=== PATIENT | male | born 1960 | race African-American/Black ===

== ENCOUNTER 2017-11-19 01:22 | Inpatient (IN) ==
[2017-11-19] MEDS ORDERED: Ondansetron 4 MG/2 ML VIAL IVP ONE (01:28)
--- NOTE | 2017-11-19 01:35 | Emergency Department Note ---
Disposition Clinical Impression: Congestive heart failure Qualifiers: Heart failure type: unspecified Heart failure chronicity: acute Qualified Code( s): I50.9 - Heart failure, unspecified Disposition: Still a Patient Condition: Fair [facility]errals: [facility]Primary Care Provider[facility] - SOB HPI - General Stated Complaint: Shortness of Breath Nursing Notes Reviewed: Yes Vital Signs Reviewed: Yes - History of Present Illness Mr. Ball, a 57-year-old male, presents from home by EMS for evaluation of dyspnea. Onset progressive since yesterday morning. He is now having difficulty speaking and prefers an upright posture to laying down or reclining. Patient states that he had quit smoking however he missed it so he started back up several days ago. It was after this that his symptoms began. PMH: Stage V kidney disease on dialysis Sunday, Sunday, Sunday (he did not miss Sunday dialysis). Anemia of chronic disease. History of peptic ulcer disease, COPD, hypertension, endocarditis, pericarditis, cardiac Benign, chronic pain, history of sepsis. Production Support Developer: Dr. Laura ONEAL limited secondary to patient's conversational dyspnea: Positive: As above Negative: Fever, chills, chest pains, palpitations, diaphoresis - Related Data Home Medications Medication Instructions Recorded Confirmed Acetaminophen [Tylenol] 1,000 mg PO Q6HR PRN 05/10/16 05/10/16 Previous Rx's Medication Instructions Recorded Darbepoetin [Aranesp] 60 mcg SQ QWEEK syringe 04/09/16 OxyCODONE Immed Rel [Roxicodone 5 10 mg PO Q6HR PRN #30 tablet 05/12/16 MG] levoFLOXacin [Levaquin] 500 mg PO Q48H #5 tablet 05/12/16 Oxycodone HCl 5 mg PO Q6HR PRN #7 capsule 08/06/16 Allergies Allergy/AdvReac Type Severity Reaction Status Date / Time milk Allergy Severe Swelling Verified 12/06/15 20:08 of Lip/Tongue/Throat Review of Systems: As Per HPI Limitations: ROS unobtainable due to patients medical condition Past Medical History - Past Medical History Medical history: Reports: CHF, COPD, dialysis, GI bleed, hypertension, renal disease, other Surgical history: Reports: other (skin grafts left leg, amputation of left 4th distal phalanx, left foot surgery, right colectomy, multiple thoracenteses, Pleurx catheter, right forearm AV fistula) Psychiatric history: Reports: anxiety, depression - Social History Smoking Status: Current every day smoker Smokeless Tobacco Status: No Alcohol use: Reports: none Drug use: Reports: none Physical Exam Vital Signs Reviewed General: Patient is alert, oriented, and in acute respiratory distress- accessory muscle use, suprasternal retractions, to her conversational dyspnea, unable to sit reclined preferring an upright posture. Head: atraumatic, normocephalic Eye: normal appearance, no scleral icterus, no conjunctival injection ENT: mucous membranes moist, normal external ear exam Neck: normal inspection, trachea midline, full ROM Chest: normal inspection, symmetric chest rise Respiratory: Poor respiratory effort. Prolonged expiratory phase. Bilateral breath sounds are diminished with scant bibasilar crackles. No wheeze or rhonchi. Cardiovascular: Tachycardic rate and regular rhythm. No clicks, rubs, gallops, or murmors. Normal heart sounds. Abdomen: Point. Bowel sounds present normoactive x-4 quadrants. Abdomen is soft, nondistended, and nontender. No guarding or rebound. Musculoskeletal: Spontaneously moving all extremities. Skin: warm, dry, intact. Fistula and right forearm. Neuro: Alert and oriented x4. Sensation light touch intact. Psych: Patient's affect is appropriate for situation. Course Course Narrative: EKG dated 11/18/17 at 01:33 interpreted as sinus tachycardia with a rate of 119. Intervals. Borderline left axis. LVH. Peak P waves consistent with pulmonary disease. Compared to previous dated 10/11/2016 showing no acute ischemic changes or comparison. No echocardiogram records found. Clinical concern for pulmonary edema vs pneumonia. Laboratory workup shows substantially elevated BNP; far above his baseline. Troponin is less than 0.03. Patient symptomatically feels much better on BiPAP she is tolerating well. He has some mild chronic lower extremity pain; will provide analgesia. I discussed the patient with the admitting hospitalist, Dr. Flanagan, who agrees to accept the patient. Vital Signs Temperature 97.5 F L 11/19/17 01:33 Pulse Rate 119 11/19/17 01:33 Respiratory Rate 16 11/19/17 01:33 Blood Pressure 186/125 11/19/17 01:33 O2 Sat by Pulse Oximetry 97 11/19/17 01:33 Temperature 97.5 F L 11/19/17 01:33 Pulse Rate 107 11/19/17 01:51 Respiratory Rate 21 11/19/17 02:00 Blood Pressure 198/111 11/19/17 02:00 O2 Sat by Pulse Oximetry 100 11/19/17 02:00 Oxygen Delivery Oxygen Delivery Nasal Cannula Shortness of Breath/Dyspnea - Lab Data Result diagrams: 11/19/17 01:35 11/19/17 01:35 Lab Results 11/19/17 11/19/17 11/19/17 Range/Units 01:35 01:35 01:35 WBC 8.5 (4.3-11.1) K/mcL RBC 4.12 L (4.19-5.50) M/mcL Hgb 11.4 L (12.9-16.9) g/dL Hct 36.0 L (37.5-50.1) % MCV 87.4 (83.0-100.0) fL MCH 27.7 L (28.0-33.3) pg MCHC 31.7 (31.6-35.5) g/dL RDW 13.4 (11.5-14.5) % Plt Count 264 (140-400) K/mcL MPV 9.4 (9.4-12.4) fL Immature Gran % 0.2 (0-4) % Seg Neutrophils % 76.4 % Lymphocytes % 13.3 % Monocytes % 6.3 % Eosinophils % 3.0 % Basophils % 0.8 % Neutrophils # 6.5 (1.6-8.9) K/mcL Lymphocytes # 1.1 (0.6-4.6) K/mcL Monocytes # 0.5 (0.0-1.3) K/mcL Eosinophils # 0.3 (0.0-0.6) K/mcL Basophils # 0.1 (0.0-0.2) K/mcL VBG pH (7.32-7.42) pH Units VBG pCO2 (41-51) mmHg VBG pO2 (25-50) mmHg VBG HCO3 (21-27) mEq/L Sodium 136 (136-145) mEq/L Potassium 5.5 H (3.5-5.1) mEq/L Chloride 98 (98-107) mEq/L Carbon Dioxide 22 L (23-29) mEq/L BUN 54 H (6-20) mg/dL Creatinine 10.58 H (0.70-1.30) mg/dL Est GFR ( Amer) 6 L (> 60) Est GFR (Non-Af Amer) 5 L (> 60) BUN/Creatinine Ratio 5 L (6-26) Glucose 100 (70-105) mg/dL Calculated Osmolality 297 (280-300) Lactic Acid 2.1 (0.5-2.2) mmol/L Calcium 9.1 (8.6-10.3) mg/dL Troponin I 0.03 (< 0.04) ng/mL B-Natriuretic Peptide (Less than 100) pg/mL 11/19/17 11/19/17 Range/Units 01:35 01:48 WBC (4.3-11.1) K/mcL RBC (4.19-5.50) M/mcL Hgb (12.9-16.9) g/dL Hct (37.5-50.1) % MCV (83.0-100.0) fL MCH (28.0-33.3) pg MCHC (31.6-35.5) g/dL RDW (11.5-14.5) % Plt Count (140-400) K/mcL MPV (9.4-12.4) fL Immature Gran % (0-4) % Seg Neutrophils % % Lymphocytes % % Monocytes % % Eosinophils % % Basophils % % Neutrophils # (1.6-8.9) K/mcL Lymphocytes # (0.6-4.6) K/mcL Monocytes # (0.0-1.3) K/mcL Eosinophils # (0.0-0.6) K/mcL Basophils # (0.0-0.2) K/mcL VBG pH 7.23 L (7.32-7.42) pH Units VBG pCO2 60 H (41-51) mmHg VBG pO2 35 (25-50) mmHg VBG HCO3 25 (21-27) mEq/L Sodium (136-145) mEq/L Potassium (3.5-5.1) mEq/L Chloride (98-107) mEq/L Carbon Dioxide (23-29) mEq/L BUN (6-20) mg/dL Creatinine (0.70-1.30) mg/dL Est GFR ( Amer) (> 60) Est GFR (Non-Af Amer) (> 60) BUN/Creatinine Ratio (6-26) Glucose (70-105) mg/dL Calculated Osmolality (280-300) Lactic Acid (0.5-2.2) mmol/L Calcium (8.6-10.3) mg/dL Troponin I (< 0.04) ng/mL B-Natriuretic Peptide 3217 H (Less than 100) pg/mL
--- NOTE | 2017-11-19 01:49 | Emergency Department Note ---
Disposition Clinical Impression: Congestive heart failure Qualifiers: Heart failure type: unspecified Heart failure chronicity: chronic Qualified Code(s): I50.9 - Heart failure, unspecified Disposition: Still a Patient [facility]errals: [facility] [Primary Care Provider] - General Adult HPI - General Chief complaint: ED Shortness of Breath/Dyspnea Stated complaint: Shortness of Breath Source: patient Limitations: no limitations - History of Present Illness Pain Scale: 0 - Related Data Home Medications Medication Instructions Recorded Confirmed Acetaminophen [Tylenol] 1,000 mg PO Q6HR PRN 05/10/16 05/10/16 Previous Rx's Medication Instructions Recorded Darbepoetin [Aranesp] 60 mcg SQ QWEEK syringe 04/09/16 OxyCODONE Immed Rel [Roxicodone 5 10 mg PO Q6HR PRN #30 tablet 05/12/16 MG] levoFLOXacin [Levaquin] 500 mg PO Q48H #5 tablet 05/12/16 Oxycodone HCl 5 mg PO Q6HR PRN #7 capsule 08/06/16 Allergies Allergy/AdvReac Type Severity Reaction Status Date / Time milk Allergy Severe Swelling Verified 12/06/15 20:08 of Lip/Tongue/Throat Past Medical History - Past Medical History Medical history: Reports: CHF, COPD, dialysis, GI bleed, hypertension, renal disease, other Surgical history: Reports: other (skin grafts left leg, amputation of left 4th distal phalanx, left foot surgery, right colectomy, multiple thoracenteses, Pleurx catheter, right forearm AV fistula) Psychiatric history: Reports: anxiety, depression - Social History Smoking Status: Current every day smoker Smokeless Tobacco Status: No Alcohol use: Reports: none Drug use: Reports: none Physical Exam - General Limitations: no limitations General appearance: alert Course - Reevaluation(s) Reevaluation #1: Attestation note I examined this patient and my medical decision-making was reviewed with the emergency medicine resident. I agree with the documented findings, disposition and treatment plan as described except to the extent set forth below. Patient seen with emergency medicine resident Dr. Amado Zee, Please see a copy of his note for details of the H&P, ED evaluation, management and disposition. I have independently evaluated the patient and confirmed appropriate portions of the history and physical exam. Briefly: 49-year-old dialysis dependent end-stage renal disease male via EMS for increased shortness of breath. And dyspnea on exertion. Patient gets dialyzed 3 times a week he has not missed any Histex appointment is today on Sunday. No fever chills or sputum. Patient has bibasilar crackles. Patient get up PA lateral chest x-ray and screening labs. Patient placed on supplental oxygen. We will consider BiPAP and admission. Disposition pending Time: 01:46 Vital Signs Temperature 97.5 F L 11/19/17 01:33 Pulse Rate 119 11/19/17 01:33 Respiratory Rate 16 11/19/17 01:33 Blood Pressure 186/125 11/19/17 01:33 O2 Sat by Pulse Oximetry 97 11/19/17 01:33 Temperature 97.5 F L 11/19/17 01:33 Pulse Rate 119 11/19/17 01:33 Respiratory Rate 16 11/19/17 01:33 Blood Pressure 186/125 11/19/17 01:33 O2 Sat by Pulse Oximetry 95 11/19/17 01:42 Oxygen Delivery Oxygen Delivery Nasal Cannula
[2017-11-19 01:52] LABS: VBG HCO3 25 mEq/L (21-27); VBG PCO2 60 mmHg (41-51); VBG PH 7.23 pH Units (7.32-7.42); VBG PO2 35 mmHg (25-50)
[2017-11-19 01:53] LABS: Basophils # 0.1 K/mcL (0.0-0.2); Basophils % 0.8 %; Eosinophils # 0.3 K/mcL (0.0-0.6); Hemoglobin 11.4 g/dL (12.9-16.9); Immature Granulocytes % 0.2 % (0-4); Lymphocytes # 1.1 K/mcL (0.6-4.6); Lymphocytes % 13.3 %; Mean Corpuscular HGB Conc 31.7 g/dL (31.6-35.5); Mean Corpuscular Hemoglobin 27.7 pg (28.0-33.3); Mean Corpuscular Volume 87.4 fL (83.0-100.0); Mean Platelet Volume 9.4 fL (9.4-12.4); Monocytes # 0.5 K/mcL (0.0-1.3); Monocytes % 6.3 %; Neutrophils # 6.5 K/mcL (1.6-8.9); Platelet Count 264 K/mcL (140-400); Red Blood Count 4.12 M/mcL (4.19-5.50); Red Cell Distribution Width 13.4 % (11.5-14.5); Segmented Neutrophils % 76.4 %
[2017-11-19 02:12] LABS: Troponin I 0.03 ng/mL (< 0.04)
[2017-11-19 02:26] LABS: Calcium 9.1 mg/dL (8.6-10.3); Potassium 5.5 mEq/L (3.5-5.1)
[2017-11-19] MEDS ORDERED: *HR* Nalbuphine 10 MG/ML AMPUL IVP STA (02:33)
[2017-11-19] MEDS ORDERED: Furosemide 40 MG/4 ML VIAL IVP ONE ×2 (02:57→03:37)
[2017-11-19] MEDS ORDERED: Naloxone 0.4 MG/ML INJ IVP PRN (02:57)
[2017-11-19] MEDS ORDERED: Nitroglycerin 0.4 MG TAB.SUBL SL ONE (03:00)
[2017-11-19] MEDS ORDERED: amLODIPine 5 MG TABLET PO ONE (03:00)
[2017-11-19] MEDS ORDERED: Ipratropium/Albuterol Neb 3 ML IH PRN (03:01)
--- NOTE | 2017-11-19 03:05 | Internal Med History&Physical ---
Date of Encounter: 11/19/17 Time of Encounter: 03:38 Internal Medicine - H&P: HPI Chief complaint: Shortness of breath Admitted From: Home Plans for Post Hospital Care: Home History of present illness: Mr. Ball is a 57 year old male with medical history of end-stage renal disease on hemodialysis Sunday/Sunday/Sunday, GERD, COPD, tobacco abuse, presented to the emergency room with sudden onset shortness of breath starting the day prior to presentation. Patient reports he was in his usual state of health till he developed sudden shortness of breath at rest, associated with orthopnea with inability to lay flat, no PND. He denies cough, he denies fever or chills, denies rhinorrhea, no sick contacts, no chest pain. He denies recent travels or calf tenderness. He denies nausea, vomiting, abdominal pain, change in urinary or bowel habits. He still makes urine. He denies any neurologic symptoms. On presentation to the ER, the patient was tachypneic with extremely elevated blood pressures and hypoxic requiring 2 L of oxygen by nasal cannula.. In the ER shows CBC at baseline, hypokalemia with potassium of 5.5, kidney function at baseline. BNP was greater than 3000. Troponin was negative. EKG is nonischemic. Chest x-ray shows bilateral pulmonary edema. Patient will be admitted for CHF exacerbation, fluid overload with pulmonary edema, hypertensive urgency. He has been placed on BiPAP from the emergency room. Past Med Surg Social Fam HX - Past Medical History Medical history: CHF, COPD, dialysis, GI bleed, hypertension, renal disease, other Psychiatric history: anxiety, depression - Past Surgical History Surgical History: other (skin grafts left leg, amputation of left 4th distal phalanx, left foot surgery, right colectomy, multiple thoracenteses, Pleurx catheter, right forearm AV fistula) - Social History Smoking Status: Current every day smoker Smokeless Tobacco Status: No Alcohol use: none Drug use: none Internal Medicine - H&P: Meds Darbepoetin [Aranesp] 60 mcg SQ QWEEK syringe 04/09/16 [Rx] Acetaminophen [Tylenol] 1,000 mg PO Q6HR PRN 05/10/16 [History] OxyCODONE Immed Rel [Roxicodone 5 MG] 10 mg PO Q6HR PRN #30 tablet 05/12/16 [Rx] levoFLOXacin [Levaquin] 500 mg PO Q48H #5 tablet 05/12/16 [Rx] Oxycodone HCl 5 mg PO Q6HR PRN #7 capsule 08/06/16 [Rx] 3 Allergy/AdvReac Type Severity Reaction Status Date / Time milk Allergy Severe Swelling Verified 12/06/15 20:08 of Lip/Tongue/Throat All Systems PM: A 10-system review of systems was performed and is negative for pertinent findings except as documented above in the HPI. - Constitutional Constitutional: as per HPI - EENT Eyes: as per HPI Ears: as per HPI Nose, mouth and throat: as per HPI - Cardiovascular Cardiovascular ROS IM: as per HPI - Respiratory Respiratory: as per HPI - Gastrointestinal Gastrointestinal: as per HPI - Musculoskeletal Musculoskeletal ROS IM: as per HPI - Integumentary Integumentary IM: as per HPI - Neurological Neurological ROS: as per HPI - Hematologic/Lymphatic Hematologic/Lymphatic: as per HPI - Constitutional Vitals: Temp Pulse Resp BP Pulse Ox 97.5 F L 107 21 198/111 100 11/19/17 01:33 11/19/17 01:51 11/19/17 02:00 11/19/17 02:00 11/19/17 02:00 General appearance: Present: mild distress, A&O X 3, pleasant - Head Head exam: Present: atraumatic, normocephalic - Eye Eye exam: Present: PERRL, conjuntiva pink, sclera anicteric Pupils: Present: PERRL - Neck Neck exam general surgery: Present: supple, trachea midline. Absent: lymphadenopathy - Respiratory Additional comments: Patient is tachypneic with respiratory rate of 20-24, diffuse bilateral crackles in both lung zones. He is not wheezing. He has no rhonchi. - Cardiovascular Cardiovascular exam: Present: RRR, +S1, +S2. Absent: diastolic murmur, gallop, rubs, systolic murmur - GI/Abdominal GI/Abdominal exam: Present: normal bowel sounds, soft, no peritoneal signs. Absent: distended, tenderness - Extremities Exam Extremities exam: Present: warm, radial pulses palpable and symmetrical. Absent : calf tenderness, cyanotic, pedal edema Additional comments: Left leg chronic venostasis changes. No cough tenderness. - Neurological Exam Neurological exam: Present: alert, CN II-XII intact, oriented X3, no focal deficits. Absent: pronater drift, facial droop, speech deficit - Skin Skin exam: Present: dry, intact Internal Med - H&P Results - Labs CBC & Chem 7: 11/19/17 01:35 11/19/17 01:35 - Assessment and plan (1) Hypertensive urgency Current Visit: Yes Status: Acute Assessment and plan: Blood pressure is improving with administration of Lasix, start Norvasc by mouth. Patient reports he is not a known hypertensive, blood pressure during hemodialysis on Sunday was within normal limits. Continue Norvasc for now, withhold for blood pressure SBP <140 (2) Congestive heart failure Current Visit: Yes Status: Acute Assessment and plan: Patient also subsisted history of CHF, no echocardiogram on file. Presented with shortness of breath with elevated BNP, and evidence of pulmonary edema. Lasix IV 80 mg was given, will give additional 40 mg as his blood pressure cannot tolerate. Continue Lasix IV 40 mg daily. Chest x-ray with evidence of pulmonary edema continue BiPAP.Blood gases unremarkable. Nephrology evaluation for hemodialysis routinely. Daily weights. Strict intake and output. Qualifiers: Heart failure type: unspecified Heart failure chronicity: acute on chronic Qualified Code(s): I50.9 - Heart failure, unspecified (3) DVT prophylaxis Current Visit: Yes Status: Acute Assessment and plan: Subcutaneous heparin. (4) End-stage renal disease Current Visit: Yes Status: Chronic Assessment and plan: Nephrology consulted for hemodialysis. - Time Spent With Patient Total time spent is greater than 50% in coordination of care (as documented) at patient's floor/unit and/or counseling patient:
[2017-11-19] MEDS: *HR* Heparin 5,000 UNIT/ML VIAL SQ SCH ×3 (06:17→22:16)
[2017-11-19] MEDS ORDERED: 0.9 % Sodium Chloride 250 ML IVC PRN (09:57)
--- NOTE | 2017-11-19 09:57 | Nephrology Consult Note ---
Date of Encounter: 11/19/17 Time of Encounter: 09:55 Assessment and Plan (1) End-stage renal disease Current Visit: Yes Status: Chronic Patient is end-stage renal disease related to hypertensive nephrosclerosis. He presents with acute onset shortness of breath in the setting of what appears to be pulmonary edema. He will undergo urgent dialysis this morning. (2) Benign hypertensive kidney disease with end stage renal disease Current Visit: Yes Status: Acute History of Present Illness - History of Present Illness This is a 57-year-old male with end-stage renal disease. He receives dialysis every Sunday in [place]. He has a right arm AV fistula. Patient was admitted to the hospital with acute onset of shortness of breath. Patient states he was at home smoking last night when he became acutely short of breath presented to the emergency room. Chest x-ray showed evidence of pulmonary edema. BNP was elevated as was his blood pressure. Currently the patient is on BiPAP. He says he feels somewhat better. He is going to be going for dialysis this morning. Past Med Surg Social Fam HX - Past Medical History Medical history: CHF, COPD, dialysis, GI bleed, hypertension, renal disease, other Psychiatric history: anxiety, depression - Past Surgical History Surgical History: other (skin grafts left leg, amputation of left 4th distal phalanx, left foot surgery, right colectomy, multiple thoracenteses, Pleurx catheter, right forearm AV fistula) - Social History Smoking Status: Current every day smoker Packs per day: 1 Smokeless Tobacco Status: No Alcohol use: none Drug use: none Medications and Allergies Darbepoetin [Aranesp] 60 mcg SQ QWEEK syringe 04/09/16 [Rx] Acetaminophen [Tylenol] 1,000 mg PO Q6HR PRN 05/10/16 [History] OxyCODONE Immed Rel [Roxicodone 5 MG] 10 mg PO Q6HR PRN #30 tablet 05/12/16 [Rx] levoFLOXacin [Levaquin] 500 mg PO Q48H #5 tablet 05/12/16 [Rx] Oxycodone HCl 5 mg PO Q6HR PRN #7 capsule 08/06/16 [Rx] 3 Allergy/AdvReac Type Severity Reaction Status Date / Time milk Allergy Severe Swelling Verified 12/06/15 20:08 of Lip/Tongue/Throat Review of Systems Constitutional: as per HPI Eyes: bilateral: blurred vision (patient denies), diplopia (patient denies) Nose, mouth and throat: no dizziness, no headache(s) Cardiovascular: dyspnea, dyspnea on exertion Respiratory: dyspnea, dyspnea on exertion Gastrointestinal: no abdominal pain, no change in bowel habits Musculoskeletal: no muscle weakness, no numbness Integumentary: no hirsutism, no striae Neurological: abnormal gait Psychiatric: no depression, no difficulty concentrating Endocrine: as per HPI Hematologic/Lymphatic: no easy bruising, no lymphadenopathy Exam - Vital Signs Vital signs: Initial Vital Signs Temp Pulse Resp BP Pulse Ox 97.5 F L 119 16 186/125 97 11/19/17 01:33 11/19/17 01:33 11/19/17 01:33 11/19/17 01:33 11/19/17 01:33 Vital Signs - Last 8 Hours Temp Pulse Resp BP Pulse Ox 11/19/17 09:23 92 11/19/17 09:12 96 11/19/17 09:07 97.6 F 90 20 151/97 97 11/19/17 03:45 92 11/19/17 03:28 97.1 F L 90 19 168/106 98 11/19/17 03:19 18 175/118 Intake and Output 11/18/17 11/19/17 11/19/17 23:59 07:59 15:59 Other: Weight 78.2 kg Blood Glucose* 77 87 Patient Weight 11/19/17 23:59 Weight 78.2 kg - General Appearance Exam: Patient is currently alert and oriented. He is on BiPAP. He is in no acute distress. Lungs very coarse breath sounds especially in the bases. There is some coarse rales in the bases. No wheezing or rhonchi. Heart regular rate and rhythm with a 2/6 soft ejection murmur. Abdomen shows normal bowel sounds buries masses, megaly or tenderness. There is some mild swelling of the left lower extremity which is chronic for the patient. There is no swelling of the right lower extremity. There is a functioning AV fistula in the right upper extremity. Results - Lab Results 11/19/17 01:35 11/19/17 01:35 Most recent lab results Calcium 9.1 mg/dL (8.6-10.3) 11/19/17 01:35 Consult Discharge Plan - Plan
[2017-11-19] MEDS ORDERED: Acetaminophen 325 MG TABLET PO PRN (10:36)
--- NOTE | 2017-11-19 11:16 | Event Note ---
Date of Encounter: 11/19/17 Time of Encounter: 11:14 Mr. Ball is a 57 year old male with medical history of end-stage renal disease on hemodialysis Sunday/Sunday/Sunday, GERD, COPD, tobacco abuse, presented to the emergency room with sudden onset shortness of breath starting the day prior to presentation. Patient reports he was in his usual state of health till he developed sudden shortness of breath at rest, associated with orthopnea with inability to lay flat, no PND. He denies cough, he denies fever or chills, denies rhinorrhea, no sick contacts, no chest pain. He denies recent travels or calf tenderness. He denies nausea, vomiting, abdominal pain, change in urinary or bowel habits. He still makes urine. He denies any neurologic symptoms. Patient was admitted for acute on chronic CHF exacerbation was BNP 3000 above. Patient is seen and examined this morning, he feels a better on BiPAP. Patient gets dialysis Sunday. I called to Dr. Jackson he is aware of his dialyzes, he will set up HD this afternoon
[2017-11-19] MEDS ORDERED: 0.9 % Sodium Chloride 2,000 ML ONE (12:53)
[2017-11-19 13:04] LABS: Hepatitis B Surface Antigen Nonreactive (Nonreactive)
[2017-11-20 04:14] LABS: Basophils % 0.8 %; Eosinophils # 0.2 K/mcL (0.0-0.6); Eosinophils % 2.9 %; Hematocrit 30.7 % (37.5-50.1); Hemoglobin 9.9 g/dL (12.9-16.9); Immature Granulocytes % 0.2 % (0-4); Lymphocytes # 0.4 K/mcL (0.6-4.6); Lymphocytes % 8.3 %; Mean Corpuscular HGB Conc 32.2 g/dL (31.6-35.5); Mean Corpuscular Hemoglobin 27.6 pg (28.0-33.3); Mean Corpuscular Volume 85.5 fL (83.0-100.0); Mean Platelet Volume 9.5 fL (9.4-12.4); Monocytes # 0.4 K/mcL (0.0-1.3); Monocytes % 8.3 %; Neutrophils # 4.1 K/mcL (1.6-8.9); Platelet Count 195 K/mcL (140-400); Red Blood Count 3.59 M/mcL (4.19-5.50); Red Cell Distribution Width 13.4 % (11.5-14.5); Segmented Neutrophils % 79.5 %
[2017-11-20 04:40] LABS: Calcium 8.6 mg/dL (8.6-10.3)
[2017-11-20] MEDS: *HR* Heparin 5,000 UNIT/ML VIAL SQ SCH ×3 (05:00→21:24)
[2017-11-20] MEDS ORDERED: *HR* Nalbuphine 10 MG/ML AMPUL IV ONE (05:14)
--- NOTE | 2017-11-20 08:10 | Nephrology Progress Note ---
Date of Encounter: 11/20/17 Time of Encounter: 08:09 - Assessment and Plan (1) End-stage renal disease Current Visit: Yes Status: Chronic The patient will continue to be supported with dialysis every Sunday. I am going to make some changes to his antihypertensive regimen today. (2) Benign hypertensive kidney disease with end stage renal disease Current Visit: Yes Status: Acute Subjective Interval history: The patient reports his shortness of breath is improved. His oxygen saturation is greater than 90% on room air. Blood pressure remains suboptimal. He did undergo dialysis yesterday. Objective - Vital Signs Vital signs: Vital Signs Temp Pulse Resp BP Pulse Ox 11/20/17 03:39 98.1 F 94 17 156/100 95 11/19/17 23:06 98.2 F 91 17 145/96 90 11/19/17 22:18 87 11/19/17 20:14 98.2 F 87 18 149/98 93 11/19/17 16:07 97.9 F 89 18 128/83 96 11/19/17 14:00 97.4 F L 18 133/78 11/19/17 13:35 122/80 11/19/17 13:20 130/84 11/19/17 13:15 127/83 11/19/17 12:55 96/48 11/19/17 12:50 124/80 11/19/17 12:35 128/80 11/19/17 12:20 134/83 11/19/17 12:05 126/86 11/19/17 11:50 133/77 11/19/17 11:35 141/89 11/19/17 11:20 138/84 11/19/17 11:05 154/99 11/19/17 10:50 161/104 11/19/17 10:35 97.0 F L 20 148/96 11/19/17 09:23 92 11/19/17 09:12 96 11/19/17 09:07 97.6 F 90 20 151/97 97 Intake and Output 11/19/17 11/20/17 11/20/17 23:59 07:59 15:59 Intake Total 240 / 240 Balance 240 / 240 Intake: Oral 240 / 240 Other: Meal Dinner Percent of Meal Consumed 100% Weight 77.5 kg Blood Glucose* 124 Patient Weight 11/20/17 23:59 Weight 77.5 kg - General Appearance Exam: The patient is alert and oriented. He is in no acute distress. Lungs diminished breath sounds otherwise clear. Heart regular rate and rhythm. Abdomen is benign. There is a right arm AV fistula. There is no swelling of the right lower extremity. There is chronic edema of the left lower extremity. - Lab 11/20/17 03:38 11/20/17 03:38 Most recent lab results Calcium 8.6 mg/dL (8.6-10.3) 11/20/17 03:38 Consult Discharge Plan - Plan [facility]errals: [facility] [Primary Care Provider] - 11/28/17 10:45 am (PLEASE MAKE SURE YOU GO TO YOUR APPOINTMENT, THIS IS A NECESSITIY. )
[2017-11-20] MEDS: amLODIPine 5 MG TABLET PO SCH ×2 (08:53→20:39)
[2017-11-20] MEDS: Furosemide 40 MG/4 ML VIAL IVP SCH (08:54)
[2017-11-20] MEDS ORDERED: amLODIPine 5 MG TABLET PO SCH (09:00)
--- NOTE | 2017-11-20 17:22 | Internal Med Progress Note ---
Date of Encounter: 11/20/17 Time of Encounter: 10:20 - Assessment and plan (1) Congestive heart failure Current Visit: Yes Status: Acute Assessment and plan: Patient has acute worsening of diastolic CHF. Continue dialysis and lasix. Qualifiers: Heart failure type: diastolic Heart failure chronicity: acute on chronic Qualified Code(s): I50.33 - Acute on chronic diastolic (congestive) heart failure (2) End-stage renal disease Current Visit: Yes Status: Chronic Assessment and plan: ESRD with fluid overload. s/p dialysis. Continue dialysis per schedule. renal on board (3) DVT prophylaxis Current Visit: Yes Status: Acute Assessment and plan: Subcutaneous heparin. (4) Hypertensive urgency Current Visit: Yes Status: Acute Assessment and plan: Blood pressure is improving with administration of Lasix, start Norvasc by mouth. Patient reports he is not a known hypertensive, blood pressure during hemodialysis on Sunday was within normal limits. Continue on Norvasc. Follow renal recs for adjustment for antihypertensive regimen - Time Spent With Patient Total time spent is greater than 50% in coordination of care (as documented) at patient's floor/unit and/or counseling patient: - Subjective Interval history: No acute complaints this am - Constitutional Vitals: Temp Pulse Resp BP Pulse Ox 98.4 F 95 17 143/95 98 11/20/17 17:16 11/20/17 17:16 11/20/17 17:16 11/20/17 17:16 11/20/17 17:16 General appearance: Present: mild distress, A&O X 3, pleasant - Head Head exam: Present: atraumatic, normal inspection, normocephalic - Neck Neck exam general surgery: Present: supple - Respiratory Respiratory exam: Present: CTAB - Cardiovascular Cardiovascular exam: Present: +S1 - GI/Abdominal GI/Abdominal exam: Present: normal bowel sounds, soft - Neurological Exam Neurological exam: Present: alert Internal Medicine: Result - Labs CBC & Chem 7: 11/20/17 03:38 11/20/17 03:38 Labs: Short CBC 11/20/17 Range/Units 03:38 WBC 5.2 (4.3-11.1) K/mcL Hgb 9.9 L D (12.9-16.9) g/dL Hct 30.7 L (37.5-50.1) % Plt Count 195 (140-400) K/mcL Neutrophils # 4.1 (1.6-8.9) K/mcL BMP 11/20/17 03:38 Sodium 134 L Potassium 6.0 H Chloride 96 L Carbon Dioxide 28 BUN 36 H Creatinine 7.81 H Glucose 77 Calcium 8.6 - Impressions Impressions Echocardiogram 11/19/17 03:02 Impressions: LVEF 50%. Normal LV chamber size and low normal function. Mild concentric left ventricular hypertrophy. Indeterminate diastolic function. Normal right ventricular structure and function. Mild-moderate aortic regurgitation. Mildly thickened mitral valve leaflets with evidence of mobile echodensities, some of which may be redundant chordae tendineae. Previous study from 01/2015 reviewed and findings are very similar. Clinical correlation suggested. Mild mitral regurgitation. Unable to estimate RVSP due to lack of TR jet. LVEF has improved compared to prior reports. Left Ventricular Wall Motion: Rest Echo Findings All wall segments showed normal motion. Findings: Study Quality * Technically adequate exam. ECG Findings * Normal sinus rhythm. Left Ventricle * LVEF 50%. * Normal LV chamber size and low normal function. * Mild concentric left ventricular hypertrophy. * Indeterminate diastolic function. Right Ventricle * Normal right ventricular structure and function. Left Atrium * Moderately dilated left atrium. Right Atrium * Mildly dilated right atrium. Aortic Valve * Trileaflet aortic valve. * Mild-moderate aortic regurgitation. * No aortic stenosis. Mitral Valve * Mildly thickened mitral valve leaflets with evidence of mobile echodensities, some of which may be redundant chordae tendineae. * Mild mitral regurgitation. * No mitral stenosis. Tricuspid Valve * Grossly normal tricuspid valve structure and function. * No tricuspid regurgitation. * Unable to estimate RVSP due to lack of TR jet. Pulmonic Valve * Pulmonic valve is not well visualized. * No pulmonic regurgitation. Aorta * Normally sized aortic root. Pericardium * The pericardium appears normal. IVC * Normal IVC dimensions and inspiratory collapse. Pulmonary Artery * Normal visualized portions of the main pulmonary artery. Consult Discharge Plan - Plan Referrals: LILIANA,PCP [Primary Care Provider] - 11/28/17 10:45 am (PLEASE MAKE SURE YOU GO TO YOUR APPOINTMENT, THIS IS A NECESSITIY. )
[2017-11-21] MEDS: *HR* Heparin 5,000 UNIT/ML VIAL SQ SCH ×3 (05:25→20:05)
[2017-11-21 06:30] LABS: Basophils # 0.1 K/mcL (0.0-0.2); Basophils % 0.6 %; Eosinophils # 0.1 K/mcL (0.0-0.6); Eosinophils % 1.4 %; Immature Granulocytes % 0.4 % (0-4); Lymphocytes % 5.5 %; Mean Corpuscular HGB Conc 32.5 g/dL (31.6-35.5); Mean Corpuscular Hemoglobin 27.7 pg (28.0-33.3); Mean Corpuscular Volume 85.3 fL (83.0-100.0); Mean Platelet Volume 9.5 fL (9.4-12.4); Monocytes # 0.5 K/mcL (0.0-1.3); Monocytes % 6.2 %; Platelet Count 244 K/mcL (140-400); Red Blood Count 4.22 M/mcL (4.19-5.50); Red Cell Distribution Width 13.4 % (11.5-14.5); Segmented Neutrophils % 85.9 %
[2017-11-21 06:48] LABS: Hemoglobin 11.7 g/dL (12.9-16.9); Lymphocytes # 0.5 K/mcL (0.6-4.6)
[2017-11-21 07:02] LABS: Albumin 4.3 g/dL (3.5-5.7); Albumin/Globulin Ratio 1.2 (1.1-2.2); Bilirubin,Total 0.6 mg/dL (0.3-1.0); Globulin 3.6 g/dL (2.4-3.5); Potassium 7.1 mEq/L (3.5-5.1); Total Protein 7.9 g/dL (6.4-8.9)
[2017-11-21] MEDS ORDERED: Acetaminophen 325 MG TABLET PO PRN (07:18)
[2017-11-21] MEDS ORDERED: 0.9 % Sodium Chloride 1,000 ML ONE (07:23)
[2017-11-21] MEDS ORDERED: 0.9 % Sodium Chloride 250 ML IVC PRN (08:19)
[2017-11-21] MEDS ORDERED: 0.9 % Sodium Chloride 1,000 ML PRIME SCH (08:30)
--- NOTE | 2017-11-21 10:20 | Nephrology Progress Note ---
Date of Encounter: 11/21/17 Time of Encounter: 09:20 - Assessment and Plan (1) End-stage renal disease Current Visit: Yes Status: Chronic HD today keeping MWF schedule. Orders given. Noted K 7.1 and orders for kaexylate, calcium gluc. given. Subjective Interval history: Seen on HD. States breathing easier. Objective - Vital Signs Vital signs: Vital Signs Temp Pulse Resp BP Pulse Ox 11/21/17 07:00 97.7 F 85 18 160/96 100 11/21/17 03:59 97.7 F 91 24 167/102 99 11/21/17 00:33 98.0 F 90 18 144/91 92 11/20/17 19:30 98.0 F 97 20 154/85 95 11/20/17 17:16 98.4 F 95 17 143/95 98 11/20/17 16:09 94 11/20/17 13:38 102 11/20/17 12:05 98.4 F 97 17 151/94 99 Intake and Output 11/20/17 11/21/17 11/21/17 23:59 07:59 15:59 Intake Total 0 / 0 Balance 0 / 0 Intake: Oral 0 / 0 Other: Percent of Meal Consumed 0% Weight 76.7 kg Patient Weight 11/21/17 23:59 Weight 76.7 kg - General Appearance General appearance: Present: well-developed, well-nourished, appears started age EENT: Present: mucous membranes moist Neck: Present: no JVD Respiratory: Present: clear Cardiology: Present: no edema, regular rate, regular rhythm Gastrointestinal: Present: normoactive bowel sounds, no tenderness Integumentary: Present: warm and dry Neurologic: Present: alert and oriented x3 - Lab 11/21/17 05:41 11/21/17 05:41 Most recent lab results Calcium 9.0 mg/dL (8.6-10.3) 11/21/17 05:41 Consult Discharge Plan - Plan [facility]errals: [facility] [Primary Care Provider] - 11/28/17 10:45 am (PLEASE MAKE SURE YOU GO TO YOUR APPOINTMENT, THIS IS A NECESSITIY. )
--- NOTE | 2017-11-21 11:56 | Internal Med Progress Note ---
Date of Encounter: 11/21/17 Time of Encounter: 11:55 - Assessment and plan (1) Congestive heart failure Current Visit: Yes Status: Acute Assessment and plan: Patient has acute worsening of diastolic CHF. Continue dialysis and lasix. Qualifiers: Heart failure type: diastolic Heart failure chronicity: acute on chronic Qualified Code(s): I50.33 - Acute on chronic diastolic (congestive) heart failure (2) End-stage renal disease Current Visit: Yes Status: Chronic Assessment and plan: ESRD with fluid overload. s/p dialysis. Continue dialysis per schedule. renal on board (3) DVT prophylaxis Current Visit: Yes Status: Acute Assessment and plan: Subcutaneous heparin. (4) Hypertensive urgency Current Visit: Yes Status: Acute Assessment and plan: Blood pressure is improving with administration of Lasix, start Norvasc by mouth. Patient reports he is not a known hypertensive, blood pressure during hemodialysis on Sunday was within normal limits. Continue on Norvasc. Follow renal recs for adjustment for antihypertensive regimen (5) Hyperkalemia Current Visit: No Status: Acute Assessment and plan: Patient hypekalemic up to 7.1 this am. GAve one dose of calcium gluconate and kayexalate. Plan for dialysis this am. Repeat potassium this pm - Time Spent With Patient Total time spent is greater than 50% in coordination of care (as documented) at patient's floor/unit and/or counseling patient: - Subjective Interval history: No acute complaints this am - Constitutional Vitals: Temp Pulse Resp BP Pulse Ox 97.9 F 85 17 119/71 100 11/21/17 09:10 11/21/17 07:00 11/21/17 09:10 11/21/17 11:40 11/21/17 07:00 General appearance: Present: mild distress, A&O X 3, pleasant - Head Head exam: Present: normal inspection, normocephalic - Eye Eye exam: Present: PERRL, conjuntiva pink, sclera anicteric Pupils: Present: PERRL - Neck Neck exam general surgery: Present: supple - Respiratory Respiratory exam: Present: CTAB. Absent: accessory muscle use, rales, rhonchi, wheezes - Cardiovascular Cardiovascular exam: Present: +S1, +S2 - GI/Abdominal GI/Abdominal exam: Present: normal bowel sounds, soft, no peritoneal signs. Absent: distended, tenderness - Extremities Exam Extremities exam: Present: warm, radial pulses palpable and symmetrical. Absent : calf tenderness, cyanotic, pedal edema - Neurological Exam Neurological exam: Present: CN II-XII intact, oriented X3, no focal deficits. Absent: pronater drift, facial droop, speech deficit Internal Medicine: Result - Labs CBC & Chem 7: 11/21/17 05:41 11/21/17 05:41 Labs: Short CBC 11/21/17 Range/Units 05:41 WBC 8.1 D (4.3-11.1) K/mcL Hgb 11.7 L D (12.9-16.9) g/dL Hct 36.0 L (37.5-50.1) % Plt Count 244 (140-400) K/mcL Neutrophils # 7.0 (1.6-8.9) K/mcL BMP 11/21/17 05:41 Sodium 133 L Potassium 7.1 H* Chloride 97 L Carbon Dioxide 25 BUN 54 H Creatinine 10.20 H Glucose 90 Calcium 9.0 Liver Function 11/21/17 Range/Units 05:41 Total Bilirubin 0.6 (0.3-1.0) mg/dL AST 12 L (13-39) Units/L ALT 13 (7-52) Units/L Alkaline Phosphatase 272 H (34-104) Units/L Albumin 4.3 (3.5-5.7) g/dL Consult Discharge Plan - Plan [facility]errals: [facility] [Primary Care Provider] - 11/28/17 10:45 am (PLEASE MAKE SURE YOU GO TO YOUR APPOINTMENT, THIS IS A NECESSITIY. )
[2017-11-21] MEDS: Furosemide 40 MG/4 ML VIAL IVP SCH (12:54)
[2017-11-21] MEDS: amLODIPine 5 MG TABLET PO SCH ×2 (12:55→20:05)
[2017-11-21] MEDS: Sucralfate 1 GM TABLET PO SCH ×2 (13:05→17:25)
[2017-11-22] MEDS: *HR* Heparin 5,000 UNIT/ML VIAL SQ SCH (03:12)
[2017-11-22 05:31] LABS: Basophils % 0.7 %; Eosinophils # 0.2 K/mcL (0.0-0.6); Eosinophils % 2.7 %; Hematocrit 30.9 % (37.5-50.1); Immature Granulocytes % 0.4 % (0-4); Lymphocytes # 0.5 K/mcL (0.6-4.6); Lymphocytes % 8.4 %; Mean Corpuscular HGB Conc 32.4 g/dL (31.6-35.5); Mean Corpuscular Hemoglobin 27.8 pg (28.0-33.3); Mean Corpuscular Volume 85.8 fL (83.0-100.0); Mean Platelet Volume 9.5 fL (9.4-12.4); Monocytes # 0.5 K/mcL (0.0-1.3); Neutrophils # 4.3 K/mcL (1.6-8.9); Platelet Count 175 K/mcL (140-400); Red Cell Distribution Width 13.2 % (11.5-14.5); Segmented Neutrophils % 78.8 %
[2017-11-22 05:47] LABS: Calcium 8.3 mg/dL (8.6-10.3); Potassium 4.6 mEq/L (3.5-5.1)
[2017-11-22 07:08] VITALS: BP 148/83
--- NOTE | 2017-11-22 07:29 | Discharge Summary ---
- NOTES TO OUTPATIENT PROVIDER Notes to Outpatient Provider: Follow up with regular dialysis Orders not resulted at time of discharge: Pending orders 11/23/17 04:00 Basic Metabolic Panel AM 0400 CBC [Complete Blood Count] [HEME] AM 0400 11/24/17 04:00 Basic Metabolic Panel AM 0400 CBC [Complete Blood Count] [HEME] AM 0400 11/25/17 04:00 Basic Metabolic Panel AM 0400 CBC [Complete Blood Count] [HEME] AM 0400 11/26/17 04:00 Basic Metabolic Panel AM 0400 CBC [Complete Blood Count] [HEME] AM 0400 Date of Encounter: 11/22/17 Time of Encounter: 07:00 - Discharge Diagnosis (1) Congestive heart failure Priority: Primary Status: Acute Assessment and Plan: Patient had acute worsening of diastolic CHF. Improved with regular dialysis and lasix Qualifiers: Heart failure type: diastolic Heart failure chronicity: acute on chronic Qualified Code(s): I50.33 - Acute on chronic diastolic (congestive) heart failure (2) End-stage renal disease Priority: Primary Status: Chronic Assessment and Plan: ESRD with fluid overload. Improved with dialysis. Follow up with outpatient provider (3) DVT prophylaxis Priority: Secondary Status: Acute Assessment and Plan: Subcutaneous heparin. (4) Hypertensive urgency Priority: Secondary Status: Acute Assessment and Plan: Blood pressure is improving with administration of Lasix, start Norvasc by mouth. Patient reports he is not a known hypertensive, blood pressure during hemodialysis on Sunday was within normal limits. Continue on Norvasc. He has been switched to BID norvasc by renal (5) Hyperkalemia Priority: Secondary Status: Acute Assessment and Plan: Patient hyperkalemic up to 7.1 on 11/21. Resolved with dialysis and kayexalate. Follow up with PCP Hospital course: Mr. Ball is a 57 year old male - Time Spent with Patient Total time spent providing and/or coordinating discharge services: - Discharge Medications Prescriptions: amLODIPine [Norvasc] 10 mg PO BID #60 tablet Metoprolol [Lopressor] 50 mg PO BID #60 tablet Home Medications: Bacitracin OINT [Ak-Tracin] 1 appl TP DAILY 11/19/17 [History] Eucerin Creme 1 appl TP DAILY PRN 11/19/17 [History] Hydrocortisone 1% CREAM [Cortaid] 1 appl TP DAILY 11/19/17 [History] Ipratropium/Albuterol Neb [Duoneb] 3 ml IH Q6HR 11/19/17 [History] Lidocaine/Prilocaine CREAM [Emla] 1 appl TP DAILY 11/19/17 [History] Na Phos,M-B/Na Phos,Di-Ba [Fleet Enema Extra] 230 ml RC DAILY PRN 11/19/17 [ History] Pantoprazole Sodium 40 mg PO BID 11/19/17 [History] Sucralfate [Carafate] 1 gm PO TID 11/19/17 [History] Metoprolol [Lopressor] 50 mg PO BID #60 tablet 11/22/17 [Rx] amLODIPine [Norvasc] 10 mg PO BID #60 tablet 11/22/17 [Rx] Allergies/Adverse Reactions: 3 Allergy/AdvReac Type Severity Reaction Status Date / Time milk Allergy Severe Swelling Verified 11/19/17 19:05 of Lip/Tongue/Throat Date of admission: 11/19/17 02:57 Primary care physician: [facility] Consults: 11/19/17 03:37 Consult to Nephrology [CONS] Routine Consulting Provider: [facility] Reason for Consult: ESRD, for routine hemodialysis Call Completed: No 11/19/17 10:00 Consult to Dialysis [CONS] ONCE 11/21/17 08:30 Consult to Dialysis [CONS] ONCE - Constitutional Vitals: Temp Pulse Resp BP Pulse Ox 97.7 F 77 17 148/83 95 11/22/17 07:06 11/22/17 07:06 11/22/17 07:06 11/22/17 07:06 11/22/17 07:06 General appearance: Present: mild distress, A&O X 3, pleasant - Head Head exam: Present: atraumatic, normocephalic - Respiratory Respiratory exam: Present: CTAB. Absent: accessory muscle use, rales, rhonchi, wheezes - Cardiovascular Cardiovascular exam: Present: RRR, +S1, +S2. Absent: diastolic murmur, gallop, rubs, systolic murmur - GI/Abdominal GI/Abdominal exam: Present: normal bowel sounds, soft, no peritoneal signs. Absent: distended, tenderness - Neurological Exam Neurological exam: Present: CN II-XII intact, oriented X3, no focal deficits. Absent: pronater drift, facial droop, speech deficit - Patient Status Disposition: Home, Self-Care Condition: Fair - Discharge Instructions Follow Up With: LILIANA,PCP [Primary Care Provider] - 11/28/17 10:45 am (PLEASE MAKE SURE YOU GO TO YOUR APPOINTMENT, THIS IS A NECESSITIY. ) Forms: ED Satisfaction Letter
[2017-11-22] MEDS: amLODIPine 5 MG TABLET PO SCH (07:54)
[2017-11-22] MEDS: Furosemide 40 MG/4 ML VIAL IVP SCH (07:54)
[2017-11-22] MEDS: Sucralfate 1 GM TABLET PO SCH (07:54)
--- NOTE | 2017-11-22 09:23 | Nephrology Progress Note ---
Date of Encounter: 11/22/17 Time of Encounter: 09:10 - Assessment and Plan (1) End-stage renal disease Current Visit: Yes Status: Chronic K 4.6. Will dialyze tomorrow in [place].Keeping MWF schedule. Subjective Interval history: Sitting on edge of bed. States waiting for ride to go home. Objective - Vital Signs Vital signs: Vital Signs Temp Pulse Resp BP Pulse Ox 11/22/17 07:06 97.7 F 77 17 148/83 95 11/22/17 03:15 98.6 F 96 17 145/85 95 11/22/17 02:52 17 93 11/21/17 23:30 99 F 91 17 143/82 93 11/21/17 19:27 98.8 F 90 17 137/85 95 11/21/17 15:53 98.2 F 100 16 137/84 94 11/21/17 12:58 98.4 F 93 18 126/78 95 11/21/17 12:25 97.2 F L 15 127/76 11/21/17 12:10 120/72 11/21/17 11:55 112/74 11/21/17 11:40 119/71 11/21/17 11:25 123/79 11/21/17 11:10 128/82 11/21/17 10:55 144/96 11/21/17 10:40 140/81 11/21/17 10:25 139/83 11/21/17 10:10 141/88 11/21/17 09:55 153/92 11/21/17 09:40 150/88 11/21/17 09:25 145/87 Intake and Output 11/21/17 11/22/17 11/22/17 23:59 07:59 15:59 Output Total 100 / 100 Balance -100 / -100 Output: Urine 100 / 100 Other: Meal lg cup coffee # Voids 0 # Bowel Movements 0 Weight 73.539 kg Patient Weight 11/22/17 23:59 Weight 73.539 kg - General Appearance General appearance: Present: well-developed, well-nourished, appears started age EENT: Present: mucous membranes moist Neck: Present: no JVD Respiratory: Present: clear Cardiology: Present: edema, regular rate, regular rhythm Additional Comments: chronic left LE Gastrointestinal: Present: normoactive bowel sounds, no tenderness Integumentary: Present: warm and dry Neurologic: Present: alert and oriented x3 - Lab 11/22/17 04:38 11/22/17 04:38 Most recent lab results Calcium 8.3 mg/dL (8.6-10.3) L 11/22/17 04:38 Consult Discharge Plan - Plan [facility]errals: [facility] [Primary Care Provider] - 11/28/17 10:45 am (PLEASE MAKE SURE YOU GO TO YOUR APPOINTMENT, THIS IS A NECESSITIY. ) Prescriptions: amLODIPine [Norvasc] 10 mg PO BID #60 tablet Metoprolol [Lopressor] 50 mg PO BID #60 tablet
--- NOTE | 2017-11-22 16:37 | Electrocardiograph Report ---
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
--- NOTE | 2017-11-23 19:18 | Electrocardiograph Report ---
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
== END 2017-11-22 09:45 | disposition home or self-care (01) | DRG 291 ==
LOC: EMEROO 01:22 → 2NNU 01:22 → SUATTDRO 02:57 → 2NNU 03:21 → 2ANU 11-20 17:41
PROVIDERS: ADMIT Internal Medicine Cardiovascular Disease; ATTEND Student in an Organized Health Care Education/Training Program

== ENCOUNTER 2018-03-17 21:14 | Inpatient (IN) ==
[2018-03-17 21:51] LABS: Basophils % 0.7 %; Eosinophils # 0.2 K/mcL (0.0-0.6); Eosinophils % 2.6 %; Hematocrit 31.3 % (37.5-50.1); Hemoglobin 10.3 g/dL (12.9-16.9); Immature Granulocytes % 0.5 % (0-4); Lymphocytes # 0.5 K/mcL (0.6-4.6); Lymphocytes % 7.9 %; Mean Corpuscular HGB Conc 32.9 g/dL (31.6-35.5); Mean Corpuscular Hemoglobin 28.1 pg (28.0-33.3); Mean Corpuscular Volume 85.3 fL (83.0-100.0); Mean Platelet Volume 9.8 fL (9.4-12.4); Monocytes # 0.4 K/mcL (0.0-1.3); Monocytes % 6.7 %; Neutrophils # 4.8 K/mcL (1.6-8.9); Platelet Count 222 K/mcL (140-400); Red Blood Count 3.67 M/mcL (4.19-5.50); Red Cell Distribution Width 15.3 % (11.5-14.5); Segmented Neutrophils % 81.6 %
[2018-03-17 21:56] LABS: INR 1.1; Prothrombin Time 12.3 Seconds (9.4-12.1)
[2018-03-17 21:58] LABS: Activated Partial Thrombo Time 40.2 Seconds (26.0-36.0)
[2018-03-17] MEDS ORDERED: *HR* Morphine 2 MG/ML SYRINGE IVP ONE (22:01)
[2018-03-17] MEDS ORDERED: 0.9 % Sodium Chloride 500 ML IVC ONE (22:01)
[2018-03-17] MEDS ORDERED: Ondansetron 4 MG/2 ML VIAL IVP ONE (22:01)
--- NOTE | 2018-03-17 22:18 | Emergency Department Note ---
Disposition Clinical Impression: Acute exacerbation of chronic obstructive airways disease, Pleural effusion, HCAP (healthcare-associated pneumonia), Hypertensive urgency, ESRD (end stage renal disease) on dialysis Congestive heart failure Qualifiers: Heart failure type: unspecified Heart failure chronicity: acute on chronic Qualified Code(s): I50.9 - Heart failure, unspecified Disposition: Admitted As Inpatient Condition: Critical SOB HPI - General Chief Complaint: ED Shortness of Breath/Dyspnea Stated Complaint: sob Time Seen by Provider: 03/17/18 21:17 Source: patient, EMS Mode of arrival: EMS Limitations: no limitations Nursing Notes Reviewed: Yes Vital Signs Reviewed: Yes - History of Present Illness Patient presents to the ED chief complaint of shortness of breath. Patient has a history of CHF and COPD. He is a Sunday, Sunday, Sunday dialysis patient of Dr. Sanchez. Has not missed any dialysis recently. States that he started getting short of breath yesterday. Was progressively worse today. States he feels like fluid is building up in his lungs. He said a fever and productive cough. Having some chest tightness but no chest pain. No abdominal pain, nausea, vomiting or diarrhea. He makes very little urine. No new pain or swelling in his legs - Related Data Home Medications Medication Instructions Recorded Confirmed Eucerin Creme 1 appl TP DAILY PRN 11/19/17 02/18/18 Pantoprazole Sodium 40 mg PO BID 11/19/17 02/18/18 FLUoxetine HCl [Prozac] 20 mg PO DAILY 02/18/18 02/18/18 Previous Rx's Medication Instructions Recorded Metoprolol [Lopressor] 50 mg PO BID tablet 02/20/18 Sucralfate [Carafate] 1 gm PO TID tablet 02/20/18 amLODIPine [Norvasc] 10 mg PO DAILY tablet 02/20/18 Allergies Allergy/AdvReac Type Severity Reaction Status Date / Time milk Allergy Severe Swelling Verified 11/19/17 19:05 of Lip/Tongue/Throat Review of Systems: As reviewed in the HPI. All other systems reviewed are negative or normal. Past Medical History - Past Medical History Attestation: Yes The following information was validated with the patient. Source: patient, old records reviewed Medical history: Reports: CHF, COPD, dialysis, GI bleed, hypertension, renal disease, other Surgical history: Reports: colectomy, other Psychiatric history: Reports: anxiety, depression - Social History Smoking Status: Current every day smoker Smokeless Tobacco Status: No Alcohol use: Reports: none Drug use: Reports: none Physical Exam CONSTITUTIONAL: Ill-appearing, in mild distress SKIN: [Warm, diaphoretic, and intact without rash] EYES: [extraocular movements are grossly intact, clear conjunctiva] HENT: [Normocephalic, atraumatic, moist mucus membranes] NECK: [no obvious swelling, normal range of motion] PULMONARY: [normal chest rise and fall, mild respiratory distress, but is improved with breathing treatment per EMS, diffuse wheezing, rales bilateral bases CARDIOVASCULAR: [Tachycardia, distal extremities are warm and well perfused, right-sided AV fistulas well-functioning with palpable thrill] GASTROINSTESTINAL: [nondistended, non-tender] GENITOURINARY: [deferred] NEUROLOGIC: [normal speech, moves all extremities] MUSCULOSKELETAL: [no gross deformities, atraumatic] PSYCHIATRIC: [normal mood and affect] - General Limitations: no limitations General appearance: alert, in distress Course Course Narrative: Patient presenting with CHF versus COPD exacerbation. Decreased breath sounds with rales and wheezing. Responded well to initial breathing treatment. Also having productive cough. Sepsis workup initiated. We will evaluate for pneumonia. - Reevaluation(s) Reevaluation #1: Patient initially improved after one breathing treatment, but started getting more tachycardic and to. Ordered due to numbers and steroids. Chest x-ray shows some mild pulmonary edema versus infiltrate. We will draw blood cultures and start on Vanc, Zosyn, Levaquin. If patient does not improve quickly, We will place on BiPAP. Reevaluation #2: Patient is getting worse despite albuterol treatments. Skin diaphoretic more tachycardic and. Avoiding IV fluid bolus due to his congestive heart failure. We will give him a 0.4 sublingual nitroglycerin, started on a nitroglycerin drip and placed on BiPAP. Time: 23:08 Vital Signs Temperature 97.7 F 03/17/18 21:18 Pulse Rate 105 03/17/18 21:18 Respiratory Rate 23 03/17/18 21:18 Blood Pressure 173/106 03/17/18 21:18 O2 Sat by Pulse Oximetry 100 03/17/18 21:18 Temperature 97.7 F 03/17/18 21:18 Pulse Rate 107 03/17/18 23:30 Respiratory Rate 24 03/17/18 23:30 Blood Pressure 178/115 03/17/18 23:30 O2 Sat by Pulse Oximetry 100 03/17/18 23:30 Oxygen Delivery Oxygen Delivery Bipap Shortness of Breath/Dyspnea - Medical Records Medical records reviewed: Yes I reviewed the patient's medical records. - Lab Data Lab results reviewed: Yes I reviewed the patient's lab results. Result diagrams: 03/17/18 21:24 03/17/18 21:24 Lab Results 03/17/18 03/17/18 03/17/18 Range/Units 21:24 21:24 21:24 WBC 5.8 (4.3-11.1) K/mcL RBC 3.67 L (4.19-5.50) M/mcL Hgb 10.3 L (12.9-16.9) g/dL Hct 31.3 L (37.5-50.1) % MCV 85.3 (83.0-100.0) fL MCH 28.1 (28.0-33.3) pg MCHC 32.9 (31.6-35.5) g/dL RDW 15.3 H (11.5-14.5) % Plt Count 222 (140-400) K/mcL MPV 9.8 (9.4-12.4) fL Immature Gran % 0.5 (0-4) % Seg Neutrophils % 81.6 % Lymphocytes % 7.9 % Monocytes % 6.7 % Eosinophils % 2.6 % Basophils % 0.7 % Neutrophils # 4.8 (1.6-8.9) K/mcL Lymphocytes # 0.5 L (0.6-4.6) K/mcL Monocytes # 0.4 (0.0-1.3) K/mcL Eosinophils # 0.2 (0.0-0.6) K/mcL Basophils # 0.0 (0.0-0.2) K/mcL PT 12.3 H (9.4-12.1) Seconds INR 1.1 APTT 40.2 H (26.0-36.0) Seconds Sodium 135 L (136-145) mEq/L Potassium 5.5 H (3.5-5.1) mEq/L Chloride 100 (98-107) mEq/L Carbon Dioxide 21 L (23-29) mEq/L BUN 73 H (6-20) mg/dL Creatinine 10.64 H (0.70-1.30) mg/dL Est GFR ( Amer) 6 L (> 60) Est GFR (Non-Af Amer) 5 L (> 60) BUN/Creatinine Ratio 7 (6-26) Glucose 97 (70-105) mg/dL Calculated Osmolality 301 H (280-300) Lactic Acid (0.5-2.2) mmol/L Calcium 8.2 L (8.6-10.3) mg/dL Troponin I 0.03 (< 0.04) ng/mL B-Natriuretic Peptide (Less than 100) pg/mL 03/17/18 03/17/18 Range/Units 21:24 21:30 WBC (4.3-11.1) K/mcL RBC (4.19-5.50) M/mcL Hgb (12.9-16.9) g/dL Hct (37.5-50.1) % MCV (83.0-100.0) fL MCH (28.0-33.3) pg MCHC (31.6-35.5) g/dL RDW (11.5-14.5) % Plt Count (140-400) K/mcL MPV (9.4-12.4) fL Immature Gran % (0-4) % Seg Neutrophils % % Lymphocytes % % Monocytes % % Eosinophils % % Basophils % % Neutrophils # (1.6-8.9) K/mcL Lymphocytes # (0.6-4.6) K/mcL Monocytes # (0.0-1.3) K/mcL Eosinophils # (0.0-0.6) K/mcL Basophils # (0.0-0.2) K/mcL PT (9.4-12.1) Seconds INR APTT (26.0-36.0) Seconds Sodium (136-145) mEq/L Potassium (3.5-5.1) mEq/L Chloride (98-107) mEq/L Carbon Dioxide (23-29) mEq/L BUN (6-20) mg/dL Creatinine (0.70-1.30) mg/dL Est GFR ( Amer) (> 60) Est GFR (Non-Af Amer) (> 60) BUN/Creatinine Ratio (6-26) Glucose (70-105) mg/dL Calculated Osmolality (280-300) Lactic Acid 0.5 (0.5-2.2) mmol/L Calcium (8.6-10.3) mg/dL Troponin I (< 0.04) ng/mL B-Natriuretic Peptide 2345 H (Less than 100) pg/mL - Radiology Data Radiology results reviewed: Yes I reviewed the patient's radiology results. - EKG Data EKG attestation: Yes I reviewed and interpreted this EKG. EKG results narrative: Sinus tach, rate 105, LA interval 198, QTC 45, QRS 114, normal axis, no acute ischemic changes, LVH Critical Care Time Critical Care Time: Yes Total Critical Care Time: 60 Attestation: I personally spent ___60___ minutes devoted to the care of this critically ill patient with CHF and COPD exacerbation requiring BiPAP and nitroglycerin drip. This time excludes the time for billable procedures.
[2018-03-17 22:19] LABS: Calcium 8.2 mg/dL (8.6-10.3); Potassium 5.5 mEq/L (3.5-5.1); Troponin I 0.03 ng/mL (< 0.04)
[2018-03-17] MEDS ORDERED: Levofloxacin 750 MG/150 ML 750 MG/150 ML BAG IVPB ONE (22:32)
[2018-03-17] MEDS ORDERED: Vancomycin (wt based) 1,000 MG VIAL IV STA (22:32)
[2018-03-17] MEDS ORDERED: Piperacillin/Tazobactam 3.375 GM in 0.9 % Sodium Chloride Mini Bag 100 ML IVPB ONE (22:32)
[2018-03-17] MEDS ORDERED: Ipratropium/Albuterol Neb 3 ML IH ONE (22:42)
[2018-03-17] MEDS ORDERED: methylPREDNISolone 125 MG/2 ML VIAL IVP ONE (22:42)
[2018-03-17] MEDS ORDERED: Nitroglycerin 0.4 MG TAB.SUBL SL STA (23:06)
--- NOTE | 2018-03-17 23:22 | Emergency Department Note ---
Disposition Clinical Impression: Acute exacerbation of chronic obstructive airways disease, Pleural effusion, HCAP (healthcare-associated pneumonia), Hypertensive urgency, ESRD (end stage renal disease) on dialysis Congestive heart failure Qualifiers: Heart failure type: unspecified Heart failure chronicity: acute on chronic Qualified Code(s): I50.9 - Heart failure, unspecified Disposition: Admitted As Inpatient Condition: Critical General Adult HPI - General Chief complaint: ED Shortness of Breath/Dyspnea Stated complaint: sob Time Seen by Provider: 03/17/18 21:17 Source: patient, EMS Limitations: no limitations Nursing Notes Reviewed: Yes Vital Signs Reviewed: Yes - History of Present Illness Pain Scale: 6 - Related Data Home Medications Medication Instructions Recorded Confirmed Eucerin Creme 1 appl TP DAILY PRN 11/19/17 02/18/18 Pantoprazole Sodium 40 mg PO BID 11/19/17 02/18/18 FLUoxetine HCl [Prozac] 20 mg PO DAILY 02/18/18 02/18/18 Previous Rx's Medication Instructions Recorded Metoprolol [Lopressor] 50 mg PO BID tablet 02/20/18 Sucralfate [Carafate] 1 gm PO TID tablet 02/20/18 amLODIPine [Norvasc] 10 mg PO DAILY tablet 02/20/18 Allergies Allergy/AdvReac Type Severity Reaction Status Date / Time milk Allergy Severe Swelling Verified 11/19/17 19:05 of Lip/Tongue/Throat Past Medical History - Past Medical History Medical history: Reports: CHF, COPD, dialysis, GI bleed, hypertension, renal disease, other Surgical history: Reports: colectomy, other Psychiatric history: Reports: anxiety, depression - Social History Smoking Status: Current every day smoker Smokeless Tobacco Status: No Alcohol use: Reports: none Drug use: Reports: none Physical Exam - General Limitations: no limitations General appearance: alert, in distress Course Vital Signs Temperature 97.7 F 03/17/18 21:18 Pulse Rate 105 03/17/18 21:18 Respiratory Rate 23 03/17/18 21:18 Blood Pressure 173/106 03/17/18 21:18 O2 Sat by Pulse Oximetry 100 03/17/18 21:18 Temperature 97.7 F 03/17/18 21:18 Pulse Rate 107 03/17/18 23:30 Respiratory Rate 24 03/17/18 23:30 Blood Pressure 178/115 03/17/18 23:30 O2 Sat by Pulse Oximetry 100 03/17/18 23:30 Oxygen Delivery Oxygen Delivery Bipap Medical Decision Making - Medical Records Medical records reviewed: Yes I reviewed the patient's medical records. - Lab Data Lab results reviewed: Yes I reviewed the patient's lab results. Result diagrams: 03/17/18 21:24 03/17/18 21:24 Lab Results 03/17/18 03/17/18 03/17/18 Range/Units 21:24 21:24 21:24 WBC 5.8 (4.3-11.1) K/mcL RBC 3.67 L (4.19-5.50) M/mcL Hgb 10.3 L (12.9-16.9) g/dL Hct 31.3 L (37.5-50.1) % MCV 85.3 (83.0-100.0) fL MCH 28.1 (28.0-33.3) pg MCHC 32.9 (31.6-35.5) g/dL RDW 15.3 H (11.5-14.5) % Plt Count 222 (140-400) K/mcL MPV 9.8 (9.4-12.4) fL Immature Gran % 0.5 (0-4) % Seg Neutrophils % 81.6 % Lymphocytes % 7.9 % Monocytes % 6.7 % Eosinophils % 2.6 % Basophils % 0.7 % Neutrophils # 4.8 (1.6-8.9) K/mcL Lymphocytes # 0.5 L (0.6-4.6) K/mcL Monocytes # 0.4 (0.0-1.3) K/mcL Eosinophils # 0.2 (0.0-0.6) K/mcL Basophils # 0.0 (0.0-0.2) K/mcL PT 12.3 H (9.4-12.1) Seconds INR 1.1 APTT 40.2 H (26.0-36.0) Seconds Sodium 135 L (136-145) mEq/L Potassium 5.5 H (3.5-5.1) mEq/L Chloride 100 (98-107) mEq/L Carbon Dioxide 21 L (23-29) mEq/L BUN 73 H (6-20) mg/dL Creatinine 10.64 H (0.70-1.30) mg/dL Est GFR ( Amer) 6 L (> 60) Est GFR (Non-Af Amer) 5 L (> 60) BUN/Creatinine Ratio 7 (6-26) Glucose 97 (70-105) mg/dL Calculated Osmolality 301 H (280-300) Lactic Acid (0.5-2.2) mmol/L Calcium 8.2 L (8.6-10.3) mg/dL Troponin I 0.03 (< 0.04) ng/mL B-Natriuretic Peptide (Less than 100) pg/mL 03/17/18 03/17/18 Range/Units 21:24 21:30 WBC (4.3-11.1) K/mcL RBC (4.19-5.50) M/mcL Hgb (12.9-16.9) g/dL Hct (37.5-50.1) % MCV (83.0-100.0) fL MCH (28.0-33.3) pg MCHC (31.6-35.5) g/dL RDW (11.5-14.5) % Plt Count (140-400) K/mcL MPV (9.4-12.4) fL Immature Gran % (0-4) % Seg Neutrophils % % Lymphocytes % % Monocytes % % Eosinophils % % Basophils % % Neutrophils # (1.6-8.9) K/mcL Lymphocytes # (0.6-4.6) K/mcL Monocytes # (0.0-1.3) K/mcL Eosinophils # (0.0-0.6) K/mcL Basophils # (0.0-0.2) K/mcL PT (9.4-12.1) Seconds INR APTT (26.0-36.0) Seconds Sodium (136-145) mEq/L Potassium (3.5-5.1) mEq/L Chloride (98-107) mEq/L Carbon Dioxide (23-29) mEq/L BUN (6-20) mg/dL Creatinine (0.70-1.30) mg/dL Est GFR ( Amer) (> 60) Est GFR (Non-Af Amer) (> 60) BUN/Creatinine Ratio (6-26) Glucose (70-105) mg/dL Calculated Osmolality (280-300) Lactic Acid 0.5 (0.5-2.2) mmol/L Calcium (8.6-10.3) mg/dL Troponin I (< 0.04) ng/mL B-Natriuretic Peptide 2345 H (Less than 100) pg/mL - Radiology Data Radiology results reviewed: Yes I reviewed the patient's radiology results. Chest X-Ray 03/17/18 21:24 IMPRESSION: Persistent widespread airspace disease. D/ / Shilo Mesa MD / Shilo Mesa MD Interpreting Provider: Shilo Mesa MD - EKG Data EKG #1 EKG attestation: Yes I reviewed and interpreted this EKG. EKG results narrative: EKG shows a sinus tachycardia with ventricular rate of 105. There is some anterior ST segment elevations which are unchanged from prior EKG dated 03/11/18. Critical Care Time Critical Care Time: Yes Total Critical Care Time: 60 Attestation: Critical care performed: Time is exclusive of separately billable procedures. Time includes: direct patient care, patient reassessment, coordination of patient care, interpretation of data (laboratory data, radiology data, and respiratory data), review of patient's medical records, medical consultation and documentation of patient care. Procedures included in critical care time: Procedures excluded from critical care time: Attestation Statement - Attestation Attestation: I, Dagoberto Baker MD, personally evaluated this patient and discussed their management with the resident physician. I reviewed the resident's note and agree with the documented findings, medical decision making, and plan of care. 57-year-old male with history of end-stage renal disease on hemodialysis presents to the emergency department with a complaint of increased shortness of breath which started about 7 PM this evening and has gotten progressively worse. Patient has dialysis on Sunday was seen Sunday and did have his dialysis Sunday. He has a history of CHF as well as COPD and is a smoker and continues to smoke. He states the shortness of breath started while he was smoking. He is not normally on oxygen at home. He received a nebulizer treatment per EMS in route to the emergency department which she states did seem to help. He also however states that it feels like he is filling up with fluid. He denies any chest pain or fever. Some nonproductive cough. Some mild mid abdominal pain. On examination patient is a well-developed well-nourished male in no acute distress. He is alert and oriented 3. There is no diaphoresis. Chest is nontender to palpation. Breath sounds are decreased bilaterally with some bibasilar rales but also scattered bilateral diffuse expiratory wheezes. Heart regular with a mild tachycardia. Abdomen is soft and nontender with normal bowel sounds. No pedal edema on the left. Patient does have moderate swelling of the right lower extremity which he states is chronic and unchanged. Labs, EKG, and chest x-ray reviewed. Patient's symptoms did seem to worsen while here in the emergency department. He received additional DuoNeb treatments and IV Solu-Medrol. He also was placed on BiPAP and started on a nitroglycerin drip. The hospitalist, Dr. Hummel, was consulted and accepted admission of the patient.
[2018-03-17] MEDS: Nitroglycerin 25 MG/250 ML INFUS..BTL IVC SCH (23:32)
--- NOTE | 2018-03-18 00:27 | Internal Med History&Physical ---
Date of Encounter: 03/17/18 Time of Encounter: 23:56 Internal Medicine - H&P: HPI Chief complaint: shortness of breath Admitted From: Home Plans for Post Hospital Care: Home History of present illness: Mr. Ball is a 57 year old man with a history of COPD, hypertension and end- stage renal disease on dialysis for the last 3 years via a right arm AV fistula who was previously admitted about 3 weeks ago hyperkalemia and needing dialysis. He presents now with the complaint of acute onset shortness of breath commencing at around 7pm today and progressively worsened. He feels significantly congested in chest and says he feels there is fluid in there. Of note, he was previously seen to have pleural effusions. En route to the ER he was given nebulizer therapy which seemed to help and on arrival was placed on NIPPV which brought him relief as well as 5mg of morphine and methylprednisolone. His blood pressure was significantly elevated and was started on nitroglycerin infusion with modest lowering effect. Chest x-ray was depictive of bilateral infiltrates more suggestive of vascular congestion however he was also given empiric antibiotics because of concern for pneumonia. On my assessment, he was sitting up in bed with mild respiratory difficulty and unable to speak in full sentences because of the Bipap mask. He admits to the acuity of his symptoms stating he has been fine before this. He denies having chest pain, fever and chills. He reports adherence to his dialysis schedule. He does admit to occasional cough which he says is productive of white foamy sputum. He denies hemoptysis. He will be admitted to ICU for ongoing monitoring. Past Med Surg Social Fam HX - Past Medical History Medical history: CHF, COPD, dialysis, GI bleed, hypertension, renal disease, other Additional medical history: anemia Psychiatric history: anxiety, depression - Past Surgical History Surgical History: colectomy, other Additional surgical history: skin grafts, trach - Social History Smoking Status: Current every day smoker Smokeless Tobacco Status: No Alcohol use: none Drug use: none Internal Medicine - H&P: Meds Eucerin Creme 1 appl TP DAILY PRN 11/19/17 [History] Pantoprazole Sodium 40 mg PO BID 11/19/17 [History] FLUoxetine HCl [Prozac] 20 mg PO DAILY 02/18/18 [History] Metoprolol [Lopressor] 50 mg PO BID tablet 02/20/18 [Rx] Sucralfate [Carafate] 1 gm PO TID tablet 02/20/18 [Rx] amLODIPine [Norvasc] 10 mg PO DAILY tablet 02/20/18 [Rx] 3 Allergy/AdvReac Type Severity Reaction Status Date / Time milk Allergy Severe Swelling Verified 11/19/17 19:05 of Lip/Tongue/Throat All Systems PM: A 10-system review of systems was performed and is negative for pertinent findings except as documented above in the HPI. - Constitutional Vitals: Temp Pulse Resp BP Pulse Ox 97.7 F 107 24 178/115 100 03/17/18 21:18 03/17/18 23:30 03/17/18 23:30 03/17/18 23:30 03/17/18 23:30 Exam: Vitals: Reviewed. General: Well-developed -[place] male sitting up in bed in mild respiratory distress. Skin: Hyperpigmented and hyperkeratotic skin on his left leg. HEENT: Moist mucous membranes with onjunctivae pallor Neck: No lymphadenopathy. No JVD. Chest: Diminished thoracic expansion with reduced breath sounds in both bases and fines rales but no wheezes or rhonchi. Heart: Normal S1 & S2; rhythmic. Abdomen: Non-distended, soft and non-tender to palpation. No peritoneal reaction. Extremities: Left leg more swollen than right. Right arm AVF with palpable thrill. Neurological: Awake, alert and oriented to person, place and time. Psych: Adequate affect. Internal Med - H&P Results - Labs CBC & Chem 7: 03/17/18 21:24 03/17/18 21:24 - Assessment and plan (1) Acute on chronic respiratory failure with hypoxia Current Visit: Yes Status: Acute Assessment and plan: Secondary to flash pulmonary edema in the setting of a hypertensive emergency and complicated by COPD. His chest x-ray is not depicted of of a lobar consolidation and the acuity in symptoms go against a pneumonia especially taking into account the absence of leukocytosis and fever and other clinical signs suggestive of such. We will continue BiPAP and close monitoring in the ICU. No need to continue antibiotics. (2) Pulmonary edema Current Visit: Yes Status: Acute Assessment and plan: Notable vascular congestion is seen on his chest x-ray with significant rales on physical exam with acute onset and associated with very high blood pressure values which suggest an acute flash pulmonary edema. He will benefit from dialysis this morning, nephrology consult has been placed. We will continue symptomatic treatment with nitroglycerin drip, BiPAPand nebulizer therapy. He says he is still able to make some urine; will give a trial of furosemide. Qualifiers: Chronicity: acute Qualified Code(s): J81.0 - Acute pulmonary edema (3) Hypertensive emergency Current Visit: Yes Status: Acute Assessment and plan: He will remain on nitroglycerin drip until we are able to taper it off. Of note, the patient admits to not having taken his medications since yesterday. Will resume oral antihypertensive agents now. (4) COPD (chronic obstructive pulmonary disease) Current Visit: Yes Status: Chronic Assessment and plan: Received 1 dose of steroids and nebulizer therapy. -Will keep on duonebs q4-6hrs. -Will hold on steroids and abx as I feel there is more of a flash pulmonary edema component more so than airway inflammation causing his shortness of breath. Qualifiers: COPD type: unspecified COPD Qualified Code(s): J44.9 - Chronic obstructive pulmonary disease, unspecified (5) ESRD (end stage renal disease) on dialysis Current Visit: Yes Status: Chronic Assessment and plan: Unclear etiology; he reports it being secondary to his milk allergy causing tubular destruction. May have hypertensive kidney disease. -On M/W/F HD schedule. Nephrology consult placed (6) Anemia Current Visit: Yes Status: Chronic Assessment and plan: Current Hgb adequate. EPO supplementation as determined by nephrology. Qualifiers: Anemia type: due to chronic kidney disease Chronic kidney disease stage: on chronic dialysis Qualified Code(s): N18.6 - End stage renal disease; D63.1 - Anemia in chronic kidney disease; Z99.2 - Dependence on renal dialysis (7) Hyperkalemia Current Visit: No Status: Acute Assessment and plan: Mild and with no electrocardiographic changes. No urgent intervention required as the patient will undergo dialysis this morning. We will repeat BMP in the morning. (8) DVT prophylaxis Current Visit: Yes Status: Acute Assessment and plan: SubQ heparin ordered - Time Spent With Patient Total time spent is greater than 50% in coordination of care (as documented) at patient's floor/unit and/or counseling patient: CCT = 50mins Greater than 35 minutes
[2018-03-18] MEDS ORDERED: *HR* Promethazine 25 MG/ML VIAL IVP PRN ×2 (00:53→12:15)
[2018-03-18] MEDS ORDERED: Furosemide 40 MG/4 ML VIAL IVP ONE (00:53)
[2018-03-18] MEDS ORDERED: amLODIPine 5 MG TABLET PO SCH ×2 (01:00→09:00)
[2018-03-18] MEDS: Ipratropium/Albuterol Neb 3 ML IH SCH ×3 (03:34→11:35)
[2018-03-18] MEDS ORDERED: *HR* Heparin 5,000 UNIT/ML VIAL SQ SCH (06:00)
[2018-03-18 06:28] LABS: Calcium 7.9 mg/dL (8.6-10.3); Potassium 6.7 mEq/L (3.5-5.1)
[2018-03-18] MEDS ORDERED: Albuterol 2.5 MG/3 ML NEBULIZER IH ONE (06:32)
[2018-03-18] MEDS ORDERED: Insulin Human Regular 10 UNIT in 0.9 % Sodium Chloride 10 ML IV ONE (06:35)
[2018-03-18] MEDS ORDERED: Calcium Gluconate 2,000 MG in 0.9 % Sodium Chloride 100 ML IVPB ONE (06:35)
[2018-03-18] MEDS ORDERED: *HR* Dextrose 50 % in Water (Syg) 50 ML SYRINGE IVP ONE (06:36)
--- NOTE | 2018-03-18 06:47 | Event Note ---
Date of Encounter: 03/18/18 Time of Encounter: 06:44 Unfortunately the patient's potassium level has risen rather than lowering as I had expected after previously receiving albuterol. He patient did not produce any urine with 80mg of furosemide. Will give 10U regular insulin IV accompanied by d50%, 2grs calcium gluconate and 15mg of albuterol via nebulizer. Holding off on kayexalate for now given its onset of action will take many hours and by then he should have undergone dialysis which is the definitive treatment for both his hyperkalemia and fluid overload state.
[2018-03-18] MEDS: Nitroglycerin 25 MG/250 ML INFUS..BTL IVC SCH (08:53)
[2018-03-18] MEDS ORDERED: FLUoxetine 20 MG CAPSULE PO SCH (09:00)
[2018-03-18] MEDS ORDERED: Sucralfate 1 GM TABLET PO SCH (09:00)
[2018-03-18] MEDS ORDERED: Eucerin Cream 57 GM TUBE TP SCH (09:00)
[2018-03-18 09:21] LABS: Hematocrit 27.5 % (37.5-50.1); Hemoglobin 8.9 g/dL (12.9-16.9); Lymphocytes # 0.1 K/mcL (0.6-4.6); Mean Corpuscular HGB Conc 32.4 g/dL (31.6-35.5); Mean Corpuscular Hemoglobin 27.9 pg (28.0-33.3); Mean Corpuscular Volume 86.2 fL (83.0-100.0); Mean Platelet Volume 9.3 fL (9.4-12.4); Platelet Count 185 K/mcL (140-400); Red Blood Count 3.19 M/mcL (4.19-5.50)
--- NOTE | 2018-03-18 09:26 | Nephrology Consult Note ---
Date of Encounter: 03/18/18 Time of Encounter: 09:18 Assessment and Plan (1) ESRD (end stage renal disease) on dialysis Current Visit: Yes Status: Acute Current regimen is MWF with Dr. Sanchez. Last treatment was Sunday without complication. Does still make a small amount of urine (per patient). Will do HD in the ICU. (2) Hypertensive urgency Current Visit: Yes Status: Acute Current BP 147/85 on IV nitroglycerin. (3) Hyperkalemia Current Visit: No Status: Resolved K is 6.7, will dialyze. History of Present Illness - Reason for Consult Consult date: 03/18/18 end stage renal disease - Chief Complaint K 6.7 - History of Present Illness Mr. Ball is a 57 year old male with PMH: COPD and HTN. He is ESRD with HD MWF via right arm Fistula. He presented to ED with shortness of breath for "a few days". Denies increase in sputum. Denies radiation of pain, nausea/vomiting or diarrhea. He was noted to be in mild respiratory distress and was placed on Bipap. Is now on 2 Liters n/c tolerating well. Has been on HD for [address] Sanchez. Will plan for HD today. Past Med Surg Social Fam HX - Past Medical History Medical history: CHF, COPD, dialysis, GI bleed, hypertension, renal disease, other Additional medical history: anemia Psychiatric history: anxiety, depression - Past Surgical History Surgical History: colectomy, other Additional surgical history: skin grafts, trach - Social History Smoking Status: Current every day smoker Smokeless Tobacco Status: No Alcohol use: none Drug use: none Medications and Allergies Eucerin Creme 1 appl TP DAILY PRN 11/19/17 [History] Pantoprazole Sodium 40 mg PO BID 11/19/17 [History] FLUoxetine HCl [Prozac] 20 mg PO DAILY 02/18/18 [History] Sucralfate [Carafate] 1 gm PO TID tablet 02/20/18 [Rx] amLODIPine [Norvasc] 10 mg PO DAILY tablet 02/20/18 [Rx] Metoprolol [Lopressor] 12.5 mg PO BID 03/18/18 [History] 3 Allergy/AdvReac Type Severity Reaction Status Date / Time milk Allergy Severe Swelling Verified 03/18/18 09:58 of Lip/Tongue/Throat Review of Systems Constitutional: no anorexia, no fatigue, no fever(s) Cardiovascular: dyspnea Gastrointestinal: no change in bowel habits, no nausea, no vomiting Exam - Vital Signs Vital signs: Initial Vital Signs Temp Pulse Resp BP Pulse Ox 97.7 F 105 23 173/106 100 03/17/18 21:18 03/17/18 21:18 03/17/18 21:18 03/17/18 21:18 03/17/18 21:18 Vital Signs - Last 8 Hours Temp Pulse Resp BP Pulse Ox 03/18/18 09:00 92 22 147/85 100 03/18/18 08:00 98.6 F 92 24 142/84 03/18/18 07:38 98.6 F 03/18/18 07:32 20 142/84 100 03/18/18 07:00 82 24 123/77 100 03/18/18 06:00 82 22 133/85 100 03/18/18 05:00 86 16 135/86 99 03/18/18 04:00 97 F L 81 21 128/80 99 03/18/18 03:34 21 99 03/18/18 03:00 89 16 132/86 99 03/18/18 02:00 93 18 167/109 99 Intake and Output 03/17/18 03/18/18 03/18/18 23:59 07:59 15:59 Intake Total 650 / 650 Output Total 0 / 0 Balance 650 / 650 Intake: IV Fluids 650 / 650 Nitroglycerin Premix 25 MG/250 250 / 250 ML 25 mg In 250 ml @ 25 MCG/MIN 15 mls/hr IVC .[id number] [facility] Rx# :[id number] Levaquin Premix 750mg/150 mL 150 / 150 750 mg In 150 ml @ 100 mls/hr IVPB ONCE ONE Rx#:[id number] Vancocin 1,500 MG In 0.9 % 250 / 250 Sodium Chloride 250 ML @ 166.67 mls/hr IVPB ONCE ONE Rx#: [id number] Oral 0 / 0 Output: Urine 0 / 0 Other: Meal Breakfast Percent of Meal Consumed 20% Weight 80.2 kg Blood Glucose* 166 Patient Weight 03/18/18 23:59 Weight 80.2 kg - General Appearance General appearance: well-developed, well-nourished EENT: ATNC, hearing intact, vision intact Neck: adenopathy Respiratory: clear Cardiology: no edema, normal S1, normal S2 - Dialysis Access Dialysis Vascular Access: Arteriovenous Fistula thrill: Yes bruit: Yes Gastrointestinal: normoactive bowel sounds, no tenderness, no guarding Integumentary: no rash, warm and dry Neurologic: alert and oriented x3 Psychiatric: mood/affect appropriate, cooperative Results - Lab Results 03/18/18 09:02 03/18/18 05:32 Most recent lab results Calcium 7.9 mg/dL (8.6-10.3) L 03/18/18 05:32 Consult Discharge Plan - Plan [facility]errals: [facility] [Primary Care Provider] -
[2018-03-18 09:50] LABS: Neutrophils # 4.4 K/mcL (1.6-8.9)
[2018-03-18 09:51] LABS: Acanthocytes 1+ (Not Present); Platelet Estimate Normal (Normal)
--- NOTE | 2018-03-18 10:04 | Internal Med Progress Note ---
Hospitalist Progress Note - Encounter Date of Encounter: 03/18/18 Time of Encounter: 09:00 - Subjective Interval History: Per patient and RN patient is breathing better, off BiPap now, and BP is better on NTG drip. I called and spoke with Nephrology (Dr. Maldonado) requesting urgent dialysis given his hyperkalemia, uncontrolled HTN, and pulmonary edema. Patient has minimal SOB now, no chest pain, and denies any other current issues presently. - Exam Vitals: Temp Pulse Resp BP Pulse Ox 98.6 F 92 22 147/85 100 03/18/18 08:00 03/18/18 09:00 03/18/18 09:00 03/18/18 09:00 03/18/18 09:00 Exam: General: No acute distress; resting/breathing comfortably on 2L O2 NC HEENT: no JVD; no icterus; PERRLA Chest: CTA bilaterally; coarse breath sounds with faint crackles a bases; scattered faint wheezes. Abdomen: soft, non-tender; no HSMG; + BS Ext: 2+ edema; pulses 1-2+; no joint swelling; no calf tenderness NEURO: A&O x 3; no focal deficits; Skin: venous stasis changes and mild skin breakdown pre-tibially both legs - Assessment and Plan (1) Acute on chronic respiratory failure with hypoxia Current Visit: Yes Status: Acute Assessment and Plan: 1. Much improved. 2. Off BiPap now. Continue O2 by NC and PRN aerosols. 3. Transfer out of ICU to telemetry floor after dialysis. (2) Hyperkalemia Current Visit: Yes Status: Acute Assessment and Plan: 1. Spoke with nephrology; patient to be dialyzed this morning. 2. Will follow potassium levels closely. 3. Monitor on telemetry and EKG's. (3) Anemia Current Visit: Yes Status: Chronic Assessment and Plan: 1. Chronic; monitor H/H. 2. Outpatient management per nephrology. (4) COPD (chronic obstructive pulmonary disease) Current Visit: Yes Status: Chronic Assessment and Plan: 1. No acute process. 2. Will treat with aerosols PRN. (5) ESRD (end stage renal disease) on dialysis Current Visit: Yes Status: Chronic Assessment and Plan: 1. Consult nephrology for acute dialysis and hyperkalemia -- discussed with Dr. Maldonado. 2. Outpatient follow up with Dr. Sanchez. (6) Hypertensive emergency Current Visit: Yes Status: Acute Assessment and Plan: 1. BP much better; currently on NTG drip. 2. Wean NTG drip as tolerated to maintain SBP ~ 160. 3. Anticipate stopping NTG after dialysis. (7) DVT prophylaxis Current Visit: Yes Status: Acute Assessment and Plan: 1. Heparin SQ. Plan of Care Discussed with: nurse (patient as well) Internal Medicine: Result - Labs CBC & Chem 7: 03/18/18 09:02 03/18/18 05:32 Labs: Short CBC 03/18/18 Range/Units 09:02 WBC 4.5 (4.3-11.1) K/mcL Hgb 8.9 L (12.9-16.9) g/dL Hct 27.5 L (37.5-50.1) % Plt Count 185 (140-400) K/mcL Neutrophils # 4.4 (1.6-8.9) K/mcL BMP 03/18/18 05:32 Sodium 135 L Potassium 6.7 H* Chloride 101 Carbon Dioxide 21 L BUN 75 H Creatinine 10.81 H Glucose 137 H Calcium 7.9 L - ABG Interpretation ABG results: PT/INR, D-dimer PT 12.3 Seconds (9.4-12.1) H 03/17/18 21:24 Consult Discharge Plan - Plan Referrals: [facility] [Primary Care Provider] - (3) Anemia Qualifiers: Anemia type: due to chronic kidney disease Chronic kidney disease stage: on chronic dialysis Qualified Code(s): N18.6 - End stage renal disease; D63.1 - Anemia in chronic kidney disease; Z99.2 - Dependence on renal dialysis (4) COPD (chronic obstructive pulmonary disease) Qualifiers: COPD type: emphysema Emphysema type: panlobular Qualified Code(s): J43.1 - Panlobular emphysema
[2018-03-18] MEDS ORDERED: 0.9 % Sodium Chloride 250 ML IVC PRN (10:21)
[2018-03-18] MEDS ORDERED: 0.9 % Sodium Chloride 1,000 ML PRIME SCH (10:30)
[2018-03-18] MEDS ORDERED: Nitroglycerin 25 MG/250 ML INFUS..BTL IVC SCH (12:15)
[2018-03-18] MEDS: *HR* Heparin 5,000 UNIT/ML VIAL SQ SCH ×2 (14:54→21:07)
[2018-03-18] MEDS ORDERED: Ipratropium/Albuterol Neb 3 ML IH SCH (16:00)
[2018-03-18] MEDS: Eucerin Cream 57 GM TUBE TP SCH (19:58)
[2018-03-19 04:51] VITALS: BP 147/83
[2018-03-19 05:23] LABS: Hepatitis B Surface Antigen Nonreactive (Nonreactive)
[2018-03-19] MEDS: *HR* Heparin 5,000 UNIT/ML VIAL SQ SCH (05:54)
[2018-03-19] MEDS: Eucerin Cream 57 GM TUBE TP SCH (08:39)
[2018-03-19] MEDS ORDERED: FLUoxetine 20 MG CAPSULE PO SCH (09:00)
[2018-03-19] MEDS ORDERED: amLODIPine 5 MG TABLET PO SCH (09:00)
[2018-03-19 09:21] LABS: Basophils % 0.3 %; Eosinophils # 0.1 K/mcL (0.0-0.6); Eosinophils % 1.5 %; Hematocrit 29.3 % (37.5-50.1); Hemoglobin 9.5 g/dL (12.9-16.9); Immature Granulocytes % 0.5 % (0-4); Lymphocytes # 0.5 K/mcL (0.6-4.6); Lymphocytes % 8.1 %; Mean Corpuscular HGB Conc 32.4 g/dL (31.6-35.5); Mean Corpuscular Hemoglobin 27.9 pg (28.0-33.3); Mean Corpuscular Volume 85.9 fL (83.0-100.0); Mean Platelet Volume 9.3 fL (9.4-12.4); Monocytes # 0.4 K/mcL (0.0-1.3); Monocytes % 6.6 %; Platelet Count 173 K/mcL (140-400); Red Blood Count 3.41 M/mcL (4.19-5.50); Red Cell Distribution Width 15.3 % (11.5-14.5)
[2018-03-19 09:39] LABS: Calcium 8.3 mg/dL (8.6-10.3); Potassium 4.2 mEq/L (3.5-5.1)
--- NOTE | 2018-03-19 10:22 | Discharge Summary ---
- NOTES TO OUTPATIENT PROVIDER Notes to Outpatient Provider: Flash pulmonary edema, hypertensive emergency, improved after HD; being discharged with Albuterol inhaler PRN; Date of Encounter: 03/19/18 Time of Encounter: 10:19 - Discharge Diagnosis (1) Acute respiratory failure Priority: Primary Status: Acute Qualifiers: Qualified Code(s): J96.01 - Acute respiratory failure with hypoxia (2) Pulmonary edema Priority: Primary Status: Acute Qualifiers: Qualified Code(s): J81.0 - Acute pulmonary edema (3) Hypertensive emergency Priority: Primary Status: Acute (4) Hyperkalemia Priority: Primary Status: Acute (5) COPD (chronic obstructive pulmonary disease) Priority: Primary Status: Chronic Qualifiers: Qualified Code(s): J42 - Unspecified chronic bronchitis (6) Anemia Priority: Secondary Status: Chronic Qualifiers: Qualified Code(s): N18.6 - End stage renal disease; D63.1 - Anemia in chronic kidney disease; Z99.2 - Dependence on renal dialysis (7) ESRD (end stage renal disease) on dialysis Priority: Secondary Status: Chronic (8) Depression Priority: Secondary Status: Chronic Qualifiers: Qualified Code(s): F32.9 - Major depressive disorder, single episode, unspecified Hospital course: Mr. Ball is a 57 year old male with history of end-stage renal disease on hemodialysis, who was admitted with sudden onset of shortness of breath. Patient was noted to have possible flash pulmonary edema as noted on his chest x -ray due to uncontrolled hypertension. He was started on IV nitroglycerin drip for hypertensive emergency. He was started on steroids and antibiotics in the emergency room due to concern for pneumonia, these were held upon admission due to low suspicion for pneumonia. Nephrology was consulted, patient received hemodialysis with significant improvement in symptoms and blood pressure. He was initially requiring supplemental oxygen, but currently saturating well on room air. He also had hyperkalemia at admission, which is now improved post dialysis. He is noted to be on 12.5mg Metoprolol BID per home med rec, now beong discharged on 50mg BID. Patient's chart reflects a history of COPD, however he does not have any inhalers or nebulizers at home and requests for when necessary inhaler, will be discharged on albuterol inhaler when necessary. He is otherwise medically stable for discharge. Discharge discussed with: patient, nurse, case management - Time Spent with Patient Total time spent providing and/or coordinating discharge services: Greater than 30 minutes (40 min) - Discharge Medications Prescriptions: Albuterol Sulfate [Albuterol Inhaler] 0 puff IH Q6HR PRN #2 [email or web address] PRN Reason: Shortness Of Breath/Wheezing Metoprolol [Lopressor] 50 mg PO BID #60 tablet Home Medications: Eucerin Creme 1 appl TP DAILY PRN 11/19/17 [History] Pantoprazole Sodium 40 mg PO BID 11/19/17 [History] FLUoxetine HCl [Prozac] 20 mg PO DAILY 02/18/18 [History] Sucralfate [Carafate] 1 gm PO TID tablet 02/20/18 [Rx] amLODIPine [Norvasc] 10 mg PO DAILY tablet 02/20/18 [Rx] Albuterol Sulfate [Albuterol Inhaler] 0 puff IH Q6HR PRN #2 [email or web address] 03/19/18 [Rx] Metoprolol [Lopressor] 50 mg PO BID #60 tablet 03/19/18 [Rx] Allergies/Adverse Reactions: 3 Allergy/AdvReac Type Severity Reaction Status Date / Time milk Allergy Severe Swelling Verified 03/18/18 09:58 of Lip/Tongue/Throat Date of admission: 03/18/18 00:13 [facility] care physician: [facility] Consults: 03/18/18 00:20 Consult to Nephrology [CONS] Routine Consulting Provider: Kidney Lucy/TRINIDAD/ROCCO/ALYSA Reason for Consult: Patient with ESRD on M/W/F admitted with a fluid overload state. Call Completed: No Discharging clinician: Richa Wiggins Anticipated date of discharge: 03/19/18 - Constitutional Vitals: Temp Pulse Resp BP Pulse Ox 97.4 F L 87 20 147/83 93 03/19/18 08:03 03/19/18 08:03 03/19/18 08:03 03/19/18 08:03 03/19/18 08:03 General appearance: Present: A&O X 3, answers questions appropriately Exam: . - Cardiovascular Cardiovascular exam: Present: RRR, +S1, +S2. Absent: diastolic murmur, gallop, rubs, systolic murmur - Patient Status Disposition: Home, Self-Care Condition: Good Functional capacity at discharge: wheelchair bound Overall status at discharge: patient is progressing back to baseline - Discharge Instructions Follow Up With: [facility] [Primary Care Provider] - Additional Instructions: F/up with PCP in 1-2 weeks F/up with HD 3times/week- MWF - Diet and Activity Activity: resume usual activities as tolerated Diet: low fat, low cholesterol, low salt diet, other (renal diet)
--- NOTE | 2018-03-19 10:32 | Nephrology Progress Note ---
Date of Encounter: 03/19/18 Time of Encounter: 10:29 - Assessment and Plan (1) ESRD (end stage renal disease) on dialysis Current Visit: Yes Status: Acute Current regimen is MWF with Dr. Sanchez. HD tolerated yesterday. Is going home today (2) Hypertensive urgency Current Visit: Yes Status: Acute Current BP 147/83. Subjective Principal diagnosis: hyperkalemia Interval history: Pt seen and examined, is ready to go home. Objective - Vital Signs Vital signs: Vital Signs Temp Pulse Resp BP Pulse Ox 03/19/18 08:03 97.4 F L 87 20 147/83 93 03/19/18 03:54 97.9 F 86 15 147/83 97 03/19/18 00:27 98 F 86 15 142/82 99 03/18/18 19:19 98 F 89 16 149/83 98 03/18/18 16:46 98.0 F 91 18 153/78 99 03/18/18 16:05 15 98 03/18/18 14:30 97.9 F 18 160/84 03/18/18 14:15 157/85 03/18/18 14:00 155/83 03/18/18 13:45 160/78 03/18/18 13:30 163/91 03/18/18 13:15 166/91 03/18/18 13:00 166/89 03/18/18 12:45 169/91 03/18/18 12:30 172/96 03/18/18 12:17 90 20 161/85 100 03/18/18 12:15 163/79 03/18/18 12:00 159/91 03/18/18 11:45 156/94 03/18/18 11:30 149/87 03/18/18 11:15 151/84 03/18/18 11:00 161/90 03/18/18 10:45 98.3 F 20 145/84 Intake and Output 03/18/18 03/19/18 03/19/18 23:59 07:59 15:59 Other: Weight 77 kg Patient Weight 03/19/18 23:59 Weight 77 kg - General Appearance General appearance: Present: well-developed, well-nourished EENT: Present: ATNC, hearing intact, vision intact Neck: Present: supple Respiratory: Present: clear Cardiology: Present: no edema, normal S1, normal S2 Dialysis Vascular Access: Arteriovenous Fistula thrill: Yes bruit: Yes Gastrointestinal: Present: normoactive bowel sounds, no tenderness, no guarding Integumentary: Present: no rash, warm and dry Neurologic: Present: alert and oriented x3 Psychiatric: Present: mood/affect appropriate, cooperative - Lab 03/19/18 09:10 03/19/18 09:10 Most recent lab results Calcium 8.3 mg/dL (8.6-10.3) L 03/19/18 09:10 Consult Discharge Plan - Plan Additional Instructions: F/up with PCP in 1-2 weeks F/up with HD 3times/week- [facility] Referrals: [facility] [Primary Care Provider] -
== END 2018-03-19 11:50 | disposition home or self-care (01) | DRG 291 ==
LOC: EMEROOARM 21:14 → ICNU 21:14 → SUATTDRO 03-18 00:13 → 2ANU 03-18 14:38
PROVIDERS: ADMIT Internal Medicine; ATTEND Internal Medicine

== ENCOUNTER 2018-04-08 01:24 | Observation (INO) ==
[2018-04-08] MEDS ORDERED: Ondansetron 4 MG/2 ML VIAL IVP ONE (01:37)
--- NOTE | 2018-04-08 01:38 | Emergency Department Note ---
Disposition Clinical Impression: ESRD (end stage renal disease), Hyperkalemia Nausea and vomiting Qualifiers: Vomiting type: unspecified Vomiting Intractability: non-intractable Qualified Code(s): R11.2 - Nausea with vomiting, unspecified Disposition: Admitted As Inpatient Condition: Fair Time of Disposition: 03:41 General Adult HPI - General Chief complaint: ED Shortness of Breath/Dyspnea Stated complaint: VESTA/N/V Time Seen by Provider: 04/08/18 01:25 Source: patient, EMS Mode of arrival: EMS Limitations: no limitations Nursing Notes Reviewed: Yes Vital Signs Reviewed: Yes - History of Present Illness HPI Narrative: Patient is a 49-year-old male with a past medical history of ESRD, COPD, partial colectomy, and anemia presents to the emergency room for evaluation of difficulty in breathing. The patient states that his symptoms started earlier today around lunchtime which began having a difficult time breathing states she is also been sick to his stomach with nausea and vomiting. Patient states he currently undergoes dialysis Sunday, Sunday and Sunday and he did attend dialysis on Sunday. He is up patient of Dr. Slater. He denies any fevers, chills, chest pain, hematemesis, or diarrhea. Patient states he had normal bowel movement this morning. Pain Scale: 0 - Related Data Home Medications Medication Instructions Recorded Confirmed Eucerin Creme 1 appl TP DAILY PRN 11/19/17 03/18/18 Pantoprazole Sodium 40 mg PO BID 11/19/17 03/18/18 FLUoxetine HCl [Prozac] 20 mg PO DAILY 02/18/18 03/18/18 Previous Rx's Medication Instructions Recorded Sucralfate [Carafate] 1 gm PO TID tablet 02/20/18 amLODIPine [Norvasc] 10 mg PO DAILY tablet 02/20/18 Albuterol Sulfate [Albuterol 0 puff IH Q6HR PRN #2 hfa.aer.ad 03/19/18 Inhaler] Metoprolol [Lopressor] 50 mg PO BID #60 tablet 03/19/18 Allergies Allergy/AdvReac Type Severity Reaction Status Date / Time milk Allergy Severe Swelling Verified 03/18/18 09:58 of Lip/Tongue/Throat All systems ED: reviewed and negative except as stated. Review of Systems: As Per HPI Constitutional: Denies: fever, chills Cardiovascular: Denies: chest pain, palpitations Respiratory: Reports: cough, dyspnea. Denies: wheezes Gastrointestinal: Reports: abdominal pain (Earlier today but that has resolved) , nausea, vomiting. Denies: diarrhea, hematemesis, melena, hematochezia Genitourinary: Denies: urgency, dysuria Past Medical History - Past Medical History Attestation: Yes The following information was validated with the patient. Medical history: Reports: CHF, COPD, dialysis, GI bleed, hypertension, renal disease, other Surgical history: Reports: colectomy, other Psychiatric history: Reports: anxiety, depression - Social History Smoking Status: Current every day smoker Smokeless Tobacco Status: No Alcohol use: Reports: none Drug use: Reports: none Physical Exam CONSTITUTIONAL: A&O X 3, in no apparent distress. HEAD: Normocephalic; atraumatic EYES: PERRL, no scleral icterus NOSE: The nose is normal in appearance without rhinorrhea NECK: No JVD or distended neck veins RESP: Normal chest excursion with respiration; breath sounds clear and equal bilaterally,except for rales in bilateral bases; no wheezes or ronchi. CARD: Regular rhythm, without murmurs, rub or gallop ABD: Non-distended; non-tender, soft, without rigidity, rebound or guarding,no pulsatile mass. Well-healed scare to the right lower abdomen from old surgery. CHEST: No pain with palpation SKIN: Warm and dry without diaphoresis ; chronic venous stasis changes of the bilateral lower extremities. No apparent lesions EXTREMITIES: Pulses are 2 plus and equal times 4 extremities, no peripheral edema or calf muscle pain. AV fistula present on the right arm. - General Limitations: no limitations General appearance: alert Course Course Narrative: Patient presents with dyspnea and N/V. Patient will undergo working for CHF vs ACS vs electrolyte abnormalities at this time. Will be given zofran for symptomatic control. Will reevaluate. - Reevaluation(s) Reevaluation #1: Patient nausea has improved with the medication. He is resting in bed comfortably. Patient accepted to the hospital by Dr. Rdz for dyspnea with nausea and vomiting in the setting of ESRD. Discussed plan with patient at this time is for him to undergo dialysis this afternoon and patient will be reevaluated for his symptoms. Vital Signs Temperature 97.7 F 04/08/18 01:27 Pulse Rate 85 09/10/18 01:27 Respiratory Rate 18 04/08/18 01:27 Blood Pressure 177/110 04/08/18 01:27 O2 Sat by Pulse Oximetry 100 04/08/18 01:27 Temperature 98.1 F 04/08/18 06:08 Pulse Rate 80 04/08/18 06:08 Respiratory Rate 19 04/08/18 06:08 Blood Pressure 178/101 04/08/18 06:08 O2 Sat by Pulse Oximetry 99 04/08/18 06:08 Oxygen Delivery Oxygen Delivery Nasal Cannula Medical Decision Making - Medical Records Medical records reviewed: Yes I reviewed the patient's medical records. - Lab Data Lab results reviewed: Yes I reviewed the patient's lab results. Result diagrams: 04/08/18 01:37 04/08/18 01:37 Lab Results 04/08/18 04/08/18 04/08/18 Range/Units 01:37 01:37 01:37 WBC 8.3 (4.3-11.1) K/mcL RBC 4.32 (4.19-5.50) M/mcL Hgb 12.1 L (12.9-16.9) g/dL Hct 37.8 (37.5-50.1) % MCV 87.5 (83.0-100.0) fL MCH 28.0 (28.0-33.3) pg MCHC 32.0 (31.6-35.5) g/dL RDW 15.8 H (11.5-14.5) % Plt Count 229 (140-400) K/mcL MPV 9.5 (9.4-12.4) fL Immature Gran % 0.4 (0-4) % Seg Neutrophils % 86.0 % Lymphocytes % 5.2 % Monocytes % 6.8 % Eosinophils % 1.0 % Basophils % 0.6 % Neutrophils # 7.1 (1.6-8.9) K/mcL Lymphocytes # 0.4 L (0.6-4.6) K/mcL Monocytes # 0.6 (0.0-1.3) K/mcL Eosinophils # 0.1 (0.0-0.6) K/mcL Basophils # 0.1 (0.0-0.2) K/mcL Sodium 133 L (136-145) mEq/L Potassium 5.9 H (3.5-5.1) mEq/L Chloride 95 L (98-107) mEq/L Carbon Dioxide 22 L (23-29) mEq/L BUN 66 H (6-20) mg/dL Creatinine 11.29 H (0.70-1.30) mg/dL Est GFR ( Amer) 6 L (> 60) Est GFR (Non-Af Amer) 5 L (> 60) BUN/Creatinine Ratio 6 (6-26) Glucose 81 (70-105) mg/dL Calculated Osmolality 294 (280-300) Calcium 8.8 (8.6-10.3) mg/dL Troponin I 0.04 H* (< 0.04) ng/mL B-Natriuretic Peptide > 5000 H (Less than 100) pg/mL - Radiology Data Radiology results reviewed: Yes I reviewed the patient's radiology results. - EKG Data EKG #1 EKG attestation: Yes I reviewed and interpreted this EKG. EKG results narrative: EKG done at 1:32 shows sinus rhythm at a rate of 83 bpm. Normal axis. DC interval is prolonged at 211. Intervals otherwise are within normal limits. No signs of ST elevation or ST depression concerning for ischemia at this time. Attestation Statement - Attestation Attestation: I examined this patient and my medical decision-making was reviewed with the Resident Physician. I agree with the documented findings, disposition and treatment plan as described except to the extent set forth below. ESRD, nausea vomiting, dyspnea. There is elevated troponin. Cardiac biomarkers are not typically detectable on this patient. They are slightly elevated at this point. There is no evidence of chest pain at this time. There is almost doubling of the proBNP. I would proceed with admission, dialysis, there is ongoing intractable nausea and vomiting without abdominal pain. Given the findings of volume overload, need for dialysis, vomiting, the patient will need to be admitted for further workup and management.
[2018-04-08 01:49] LABS: Basophils # 0.1 K/mcL (0.0-0.2); Basophils % 0.6 %; Eosinophils # 0.1 K/mcL (0.0-0.6); Hematocrit 37.8 % (37.5-50.1); Hemoglobin 12.1 g/dL (12.9-16.9); Immature Granulocytes % 0.4 % (0-4); Lymphocytes # 0.4 K/mcL (0.6-4.6); Lymphocytes % 5.2 %; Mean Corpuscular Volume 87.5 fL (83.0-100.0); Mean Platelet Volume 9.5 fL (9.4-12.4); Monocytes # 0.6 K/mcL (0.0-1.3); Monocytes % 6.8 %; Neutrophils # 7.1 K/mcL (1.6-8.9); Platelet Count 229 K/mcL (140-400); Red Blood Count 4.32 M/mcL (4.19-5.50); Red Cell Distribution Width 15.8 % (11.5-14.5)
[2018-04-08 02:10] LABS: Calcium 8.8 mg/dL (8.6-10.3); Potassium 5.9 mEq/L (3.5-5.1)
[2018-04-08 02:13] LABS: Troponin I 0.04 ng/mL (< 0.04)
[2018-04-08] MEDS ORDERED: Ondansetron 4 MG/2 ML VIAL IVP STA (04:11)
[2018-04-08] MEDS ORDERED: *HR* LORazepam 2 MG/ML VIAL IVP ONE (04:13)
[2018-04-08] MEDS ORDERED: Naloxone 0.4 MG/ML INJ IVP PRN (07:22)
[2018-04-08 08:17] LABS: INR 1.3; Prothrombin Time 14.1 Seconds (9.4-12.1)
[2018-04-08 08:20] LABS: Activated Partial Thrombo Time 40.4 Seconds (26.0-36.0)
[2018-04-08] MEDS: *HR* Heparin 5,000 UNIT/ML VIAL SQ SCH ×3 (09:51→21:25)
[2018-04-08 10:27] LABS: Calcium 8.3 mg/dL (8.6-10.3); Magnesium 2.2 mg/dL (1.6-2.6); Potassium 6.2 mEq/L (3.5-5.1)
--- NOTE | 2018-04-08 10:30 | Nephrology Consult Note ---
Date of Encounter: 04/08/18 Time of Encounter: 10:25 Assessment and Plan (1) ESRD (end stage renal disease) on dialysis Current Visit: Yes Status: Acute Current regimen is MWF with Dr. Sanchez. Last treatment was Sunday. Plan for HD today. Avoid nephrotoxins and renal dose all medications. (2) Hyperkalemia Current Visit: Yes Status: Acute K is 6.2, will correct with HD. Will change to renal diet if not already ordered. (3) Nausea and vomiting Current Visit: Yes Status: Acute Per primary. Continue supportive care. Qualifiers: Vomiting type: unspecified Vomiting Intractability: non-intractable Qualified Code(s): R11.2 - Nausea with vomiting, unspecified History of Present Illness - Reason for Consult Consult date: 04/08/18 end stage renal disease - Chief Complaint nausea/vomiting x 1 day - History of Present Illness Mr. Ball is a 57 year old Male with ESRD via right arm fistula. Current regimen is MWF with Dr. Sanchez. Per the ER record, he did go to HD on Fridays. PMH: COPD and HTN. He presented to ED yesterday for difficulty in breathing and nausea/vomiting. Pt is drowsy with examination and is not a reliable historian. He does state that his symptoms started yesterday. Denies melena or michael red blood. Denies hematemeisis or diarrhea. Pt affirms his breathing is a little better and is on 2 liters n/c, tolerating well. Will plan for HD today. Past Med Surg Social Fam HX - Past Medical History Medical history: CHF, COPD, dialysis, GI bleed, hypertension, renal disease, other Additional medical history: anemia Psychiatric history: anxiety, depression - Past Surgical History Surgical History: colectomy, other Additional surgical history: skin grafts, trach - Social History Smoking Status: Current every day smoker Smokeless Tobacco Status: No Alcohol use: none Drug use: none Medications and Allergies Eucerin Creme 1 appl TP DAILY PRN 11/19/17 [History] Pantoprazole Sodium 40 mg PO BID 11/19/17 [History] FLUoxetine HCl [Prozac] 20 mg PO DAILY 02/18/18 [History] Sucralfate [Carafate] 1 gm PO TID tablet 02/20/18 [Rx] amLODIPine [Norvasc] 10 mg PO DAILY tablet 02/20/18 [Rx] Albuterol Sulfate [Albuterol Inhaler] 0 puff IH Q6HR PRN #2 hfa.aer.ad 03/19/18 [Rx] Metoprolol [Lopressor] 50 mg PO BID #60 tablet 03/19/18 [Rx] 3 Allergy/AdvReac Type Severity Reaction Status Date / Time milk Allergy Severe Swelling Verified 03/18/18 09:58 of Lip/Tongue/Throat Review of Systems Constitutional: fatigue, no chills, no fever(s) Cardiovascular: dyspnea, no chest pain, no edema, no palpitations Respiratory: dyspnea Gastrointestinal: vomiting, no change in bowel habits, no diarrhea, no melena Exam - Vital Signs Vital signs: Initial Vital Signs Temp Pulse Resp BP Pulse Ox 97.7 F 85 18 177/110 100 04/08/18 01:27 04/08/18 01:27 04/08/18 01:27 04/08/18 01:27 04/08/18 01:27 Vital Signs - Last 8 Hours Temp Pulse Resp BP Pulse Ox 04/08/18 07:33 98.4 F 80 16 168/84 99 04/08/18 06:08 98.1 F 80 19 178/101 99 04/08/18 05:46 24 167/94 Intake and Output 04/07/18 04/08/18 04/08/18 23:59 07:59 15:59 Intake Total 140 / 140 Balance 140 / 140 Intake: Oral 140 / 140 Other: Meal Breakfast Percent of Meal Consumed 10% Weight 79.1 kg Patient Weight 04/08/18 23:59 Weight 79.1 kg - General Appearance General appearance: well-developed, well-nourished EENT: ATNC, hearing intact, vision intact Neck: supple Respiratory: clear Cardiology: no edema, normal S1, normal S2 - Dialysis Access Dialysis Vascular Access: Arteriovenous Fistula thrill: Yes bruit: Yes Gastrointestinal: normoactive bowel sounds, no tenderness, no guarding Integumentary: no rash, warm and dry Neurologic: alert and oriented x3 Psychiatric: mood/affect appropriate, cooperative Results - Lab Results 04/08/18 10:41 04/08/18 09:54 Most recent lab results Calcium 8.8 mg/dL (8.6-10.3) 04/08/18 01:37 Consult Discharge Plan - Plan [facility]: [facility] Care Provider[facility] -
[2018-04-08 11:12] LABS: Basophils % 0.6 %; Eosinophils # 0.1 K/mcL (0.0-0.6); Eosinophils % 1.5 %; Hematocrit 30.5 % (37.5-50.1); Immature Granulocytes % 0.5 % (0-4); Lymphocytes # 0.7 K/mcL (0.6-4.6); Lymphocytes % 10.1 %; Mean Corpuscular HGB Conc 32.5 g/dL (31.6-35.5); Mean Corpuscular Hemoglobin 28.2 pg (28.0-33.3); Mean Corpuscular Volume 86.9 fL (83.0-100.0); Mean Platelet Volume 9.5 fL (9.4-12.4); Monocytes # 0.6 K/mcL (0.0-1.3); Neutrophils # 5.2 K/mcL (1.6-8.9); Platelet Count 204 K/mcL (140-400); Red Blood Count 3.51 M/mcL (4.19-5.50); Red Cell Distribution Width 15.6 % (11.5-14.5); Segmented Neutrophils % 78.3 %
--- NOTE | 2018-04-08 11:15 | Internal Med History&Physical ---
Date of Encounter: 04/08/18 Time of Encounter: 07:30 Internal Medicine - H&P: HPI Chief complaint: SOB Admitted From: Home Plans for Post Hospital Care: Home History of present illness: Mr. Ball is a 57 year old male with history of ESRD on hemodialysis Sunday and Sunday, COPD and chronic anemia presented to the emergency department with shortness of breath. As per patient his symptoms started early in the afternoon on admission day and continue to worsen progressively. At around 8 PM he noticed that he was having increased difficulty breathing but he decided to stay at home and see if it resolves by itself. At around 1 AM his shortness of breath became unbearable so he called the EMS and was brought to [facility]. He denies cough, wheezing or sputum production associated with his shortness of breath. He has not done anything to alleviate his shortness of breath, exertion and laying flat exacerbates his shortness of breath. He was told by his primary care physician and his input output clerk to stay compliant with fluid restriction as he is a dialysis patient however he reports that he has not been compliant with his fluid restriction this past weekend. He denies fever chills, leg swelling, calf tenderness, chest pain, palpitations , nausea, vomiting, diarrhea, pnd, orthopnea. Past Med Surg Social Fam HX - Past Medical History Medical history: CHF, COPD, dialysis, GI bleed, hypertension, renal disease, other Additional medical history: anemia Psychiatric history: anxiety, depression - Past Surgical History Surgical History: colectomy, other Additional surgical history: skin grafts, trach - Social History Smoking Status: Current every day smoker Smokeless Tobacco Status: No Alcohol use: none Drug use: none Internal Medicine - H&P: Meds Eucerin Creme 1 appl TP DAILY PRN 11/19/17 [History] Pantoprazole Sodium 40 mg PO BID 11/19/17 [History] FLUoxetine HCl [Prozac] 20 mg PO DAILY 02/18/18 [History] Albuterol Sulfate [Albuterol Inhaler] 0 puff IH Q6HR PRN #2 hfa.aer.ad 03/19/18 [Rx] Metoprolol [Lopressor] 50 mg PO BID #60 tablet 03/19/18 [Rx] 3 Allergy/AdvReac Type Severity Reaction Status Date / Time milk Allergy Severe Swelling Verified 03/18/18 09:58 of Lip/Tongue/Throat All Systems PM: review of systems was performed and is negative for pertinent findings except as documented above in the HPI. - Constitutional Vitals: Temp Pulse Resp BP Pulse Ox 98.4 F 80 16 168/84 99 04/08/18 07:33 04/08/18 07:33 04/08/18 07:33 04/08/18 07:33 04/08/18 07:33 Exam: General: Patient is alert, oriented, no acute distress, speaks in full sentences Head: atraumatic, normocephalic, Eye: normal appearance, PERRL, no scleral icterus, no conjunctival injection ENT: mucous membranes moist, normal external ear exam Neck: normal inspection, trachea midline, full ROM, Chest: normal inspection, symmetric chest rise Respiratory: Good respiratory effort. Bilateral breath sounds are decreased, crackles in the posterior lung field Cardiovascular: Regular rate and rhythm. s1 and s2 No clicks, rubs, gallops, or murmors. Abdomen: Bowel sounds present normoactive x-4 quadrants. Abdomen is soft, nondistended. no Epigastric tenderness. No guarding or rebound. No organomegaly noted, obese musculoskeletal: Spontaneously moving all extremities. e left lower extremity has increased circumference as compared to the right lower extremity which she reports that is due to the skin grafts that he had placed previously and that it is chronic. No edema, no calf tenderness Skin: warm, dry, intact. has right forearm AV fistula with palpable thrill and audible bruit no signs of infection or bleeding Neuro: Alert and oriented x4. Sensation light touch intact. Cranial nerves 2- 12 is intact. No focal deficit Psych: Patient's affect is normal Internal Med - H&P Results - Labs CBC & Chem 7: 04/08/18 10:41 04/08/18 09:54 Labs: BMP 04/08/18 09:54 Sodium 132 L Potassium 6.2 H Chloride 95 L Carbon Dioxide 24 BUN 75 H Creatinine 12.07 H Glucose 96 Calcium 8.3 L - EKG Data EKG comments: 04/08/18 11:18 pending - Assessment and plan (1) Fluid overload Current Visit: Yes Status: Acute Assessment and plan: Shortness of breath is most likely secondary to fluid overload from noncompliance to fluid restriction while being on hemodialysis Nephrology was consulted for hemodialysis Social work consult for reinstatement of hemodialysis as outpatient Follows with 's MWF Qualifiers: Hypervolemia type: unspecified Qualified Code(s): E87.70 - Fluid overload, unspecified (2) End-stage renal disease Current Visit: No Status: Chronic Assessment and plan: Hemodialysis Sunday and Sunday Nephrology was consulted for hemodialysis while inpatient Right forearm AV fistula with palpable thrill and audible bruit no signs of bleeding Social work to reinstate hemodialysis as outpatient Phosphorus level (3) Hyperkalemia Current Visit: No Status: Resolved Assessment and plan: Potassium was 5.8 and increased to 6.2 Nephrology was consulted and he is for hemodialysis MARIANNE We will follow EKG STAT Continue cardiac monitoring (4) Congestive heart failure Current Visit: Yes Status: Acute Assessment and plan: Currently in fluid overload secondary to noncompliance to fluid restriction while at home Nephrology was consulted he is for hemodialysis today BNP was elevated in the ED most likely secondary to ESRD and fluid overload Mild elevation of troponin secondary to ESRD and volume overload. Will resume home medications once confirmed if not contraindicated [id number] 50%. Normal LV chamber size and low normal function. Mild concentric left ventricular hypertrophy. Indeterminate diastolic function. Normal right ventricular structure and function. Mild-moderate aortic regurgitation. Mildly thickened mitral valve leaflets with evidence of mobile echodensities, some of which may be redundant chordae tendineae. Previous study from 01/2015 reviewed and findings are very similar. Clinical correlation suggested. Mild mitral regurgitation. Unable to estimate RVSP due to lack of TR jet. LVEF has improved compared to prior reports. Qualifiers: Heart failure type: unspecified Heart failure chronicity: acute Qualified Code(s): I50.9 - Heart failure, unspecified (5) Hypertension Current Visit: No Status: Chronic Assessment and plan: Has elevated blood pressure most likely secondary to volume overload For hemodialysis today Resume home medications if not contraindicated Qualifiers: Hypertension type: essential hypertension Qualified Code(s): I10 - Essential (primary) hypertension (6) Nausea and vomiting Current Visit: Yes Status: Acute Assessment and plan: Most likely secondary to uremia For hemodialysis today Now resolved with Zofran given in the ED Qualifiers: Vomiting type: unspecified Vomiting Intractability: non-intractable Qualified Code(s): R11.2 - Nausea with vomiting, unspecified (7) Normocytic anemia Current Visit: Yes Status: Chronic Assessment and plan: Chronic Baseline hemoglobin around 8-10 Currently stable no signs of bleeding (8) DVT prophylaxis Current Visit: No Status: Acute Assessment and plan: heparin subcutaneous - Time Spent With Patient Total time spent is greater than 50% in coordination of care (as documented) at patient's floor/unit and/or counseling patient:
[2018-04-08 11:19] LABS: Hemoglobin 9.9 g/dL (12.9-16.9)
[2018-04-08] MEDS ORDERED: 0.9 % Sodium Chloride 250 ML IVC PRN (13:13)
[2018-04-08] MEDS ORDERED: 0.9 % Sodium Chloride 1,000 ML PRIME SCH (13:15)
[2018-04-08] MEDS ORDERED: Eucerin Cream 57 GM TUBE TP PRN (17:24)
[2018-04-08 18:58] LABS: Hematocrit 34.2 % (37.5-50.1); Hemoglobin 11.2 g/dL (12.9-16.9); Mean Corpuscular HGB Conc 32.7 g/dL (31.6-35.5); Mean Corpuscular Volume 85.5 fL (83.0-100.0); Mean Platelet Volume 9.6 fL (9.4-12.4); Platelet Count 217 K/mcL (140-400); Red Cell Distribution Width 15.4 % (11.5-14.5)
[2018-04-08 19:12] LABS: Calcium 9.1 mg/dL (8.6-10.3); Potassium 3.3 mEq/L (3.5-5.1)
[2018-04-09 05:10] LABS: Hematocrit 32.2 % (37.5-50.1); Hemoglobin 10.4 g/dL (12.9-16.9); Mean Corpuscular HGB Conc 32.3 g/dL (31.6-35.5); Mean Corpuscular Volume 86.8 fL (83.0-100.0); Mean Platelet Volume 9.6 fL (9.4-12.4); Platelet Count 187 K/mcL (140-400); Red Blood Count 3.71 M/mcL (4.19-5.50); Red Cell Distribution Width 15.4 % (11.5-14.5)
[2018-04-09 05:27] LABS: Calcium 8.4 mg/dL (8.6-10.3); Potassium 4.3 mEq/L (3.5-5.1)
[2018-04-09] MEDS: *HR* Heparin 5,000 UNIT/ML VIAL SQ SCH (05:53)
[2018-04-09 08:20] VITALS: BP 154/85
[2018-04-09] MEDS ORDERED: FLUoxetine 20 MG CAPSULE PO SCH (09:00)
--- NOTE | 2018-04-09 09:50 | Discharge Summary ---
Date of Encounter: 04/09/18 Time of Encounter: 10:00 - Discharge Diagnosis (1) Fluid overload Priority: Primary Status: Acute Qualifiers: Hypervolemia type: other Qualified Code(s): E87.79 - Other fluid overload (2) Hyperkalemia Priority: Primary Status: Acute (3) Nausea and vomiting Priority: Primary Status: Acute Qualifiers: Vomiting type: unspecified Vomiting Intractability: non-intractable Qualified Code(s): R11.2 - Nausea with vomiting, unspecified (4) Hypertensive renal disease, malignant, with renal failure Priority: Secondary Status: Chronic (5) Anemia in chronic kidney disease Priority: Secondary Status: Chronic Qualifiers: Chronic kidney disease stage: on chronic dialysis Qualified Code(s): N18.6 - End stage renal disease; D63.1 - Anemia in chronic kidney disease; Z99.2 - Dependence on renal dialysis (6) COPD (chronic obstructive pulmonary disease) Priority: Secondary Status: Chronic Qualifiers: Chronic bronchitis type: unspecified Qualified Code(s): J42 - Unspecified chronic bronchitis (7) GERD (gastroesophageal reflux disease) Priority: Secondary Status: Chronic Qualifiers: Esophagitis presence: esophagitis presence not specified Qualified Code(s) : K21.9 - Gastro-esophageal reflux disease without esophagitis (8) Depression with anxiety Priority: Secondary Status: Chronic (9) Tobacco abuse Priority: Secondary Status: Chronic Hospital course: This 57 year old man has had end-stage renal disease secondary to long-standing type 2 diabetes mellitus and hypertension. He gets hemodialysis. He did develop progressing dyspnea at resting (with worsening in supine position) in the last a couple days preceding this admission. His chest x-ray showed pulmonary congestion secondary to fluid overload-likely due to noncompliance with oral fluids. He was also mildly hyperkalemic-potassium of 6.2. There is 2 problems were corrected with hemodialysis. The patient has mild anemia secondary to chronic kidney disease. CONDITION AT DISCHARGE: He feels good. He has no dyspnea at resting (also in supine position). Denies chest pain. Denies coughing and wheezing. Skin: Free of rash and discoloration. Respiratory: Normal breath sounds with no crackles and wheezes bilaterally. CV: Heart is regular with no gallop or murmur. GI: Abdomen is flat and soft with no palpable mass or visceromegaly. Neuro exam: There is no focal deficits. Normal speech, swallowing and gait. SEE DISCHARGE ORDERS/MEDICATIONS.. Discharge discussed with: patient, nurse Time spent discussing smoking cessation with patient: 3 to 10 minutes - Time Spent with Patient Total time spent providing and/or coordinating discharge services: Greater than 30 minutes (40 minutes) - Discharge Medications Prescriptions: Ondansetron ODT [Zofran ODT] 4 mg SL Q4HR PRN #10 tab.rapdis PRN Reason: Nausea And Vomiting LORazepam [Ativan] 0.5 mg PO Q6HR PRN 30 Days #20 tablet PRN Reason: Anxiety Home Medications: Eucerin Creme 1 appl TP DAILY PRN 11/19/17 [History] Pantoprazole Sodium 40 mg PO BID 11/19/17 [History] FLUoxetine HCl [Prozac] 20 mg PO DAILY 02/18/18 [History] Albuterol Sulfate [Albuterol Inhaler] 0 puff IH Q6HR PRN #2 hfa.aer.ad 03/19/18 [Rx] Metoprolol [Lopressor] 50 mg PO BID #60 tablet 03/19/18 [Rx] LORazepam [Ativan] 0.5 mg PO Q6HR PRN 30 Days #20 tablet 04/09/18 [Rx] Ondansetron ODT [Zofran ODT] 4 mg SL Q4HR PRN #10 tab.rapdis 04/09/18 [Rx] Allergies/Adverse Reactions: 3 Allergy/AdvReac Type Severity Reaction Status Date / Time milk Allergy Severe Swelling Verified 03/18/18 09:58 of Lip/Tongue/Throat Date of admission: 04/08/18 04:07 [facility] care physician: [facility] Consults: 04/08/18 07:23 Consult to Treasury Analyst [CONS] Routine Reason for SW Consult: reinstate dialysis 04/08/18 07:26 Consult to Nephrology [CONS] Stat Consulting Provider: Kidney Lucy/TRINIDAD/ROCCO/ALYSA Reason for Consult: esrd in volume overload Call Completed: No Discharging clinician: Myke Lyle Anticipated date of discharge: 04/09/18 - Constitutional Vitals: Temp Pulse Resp BP Pulse Ox 98.1 F 77 19 154/85 97 04/09/18 08:19 04/09/18 08:19 04/09/18 08:19 04/09/18 08:19 04/09/18 08:19 General appearance: Present: A&O X 3, no acute distress, answers questions appropriately Exam: xxx - Patient Status Disposition: Home, Self-Care Condition: Fair - Discharge Instructions Instructions: Heart Failure (DC) Follow Up With: LILIANA,PCP [Primary Care Provider] - 04/18/18 10:15 am (Please follow up as schedule...) Additional Instructions: HEMODIALYSIS -- ON M//. F-UP WITH PCP -- IN 7-10 DAYS. - Diet and Activity Activity: resume usual activities as tolerated Diet: low salt diet - VTE Deep Vein Thrombosis/Pulmonary Embolism Present on Admission: No
--- NOTE | 2018-04-09 10:29 | Nephrology Progress Note ---
Date of Encounter: 04/09/18 Time of Encounter: 10:27 - Assessment and Plan (1) ESRD (end stage renal disease) on dialysis Current Visit: Yes Status: Acute Current regimen is MWF with Dr. Sanchez. Last treatment was yesterday without complication. Avoid nephrotoxins and renal dose all medications. Pt may go home from a renal standpoint. (2) Hyperkalemia Current Visit: Yes Status: Acute K is is 4.3, resolved. (3) Nausea and vomiting Current Visit: Yes Status: Acute Per primary. Continue supportive care. Qualifiers: Vomiting type: unspecified Vomiting Intractability: non-intractable Qualified Code(s): R11.2 - Nausea with vomiting, unspecified Subjective Principal diagnosis: VESTA/nausea/vomiting Interval history: Pt seen and examined, doing well. No c/o of vomiting/nausea/diarrhea. Objective - Vital Signs Vital signs: Vital Signs Temp Pulse Resp BP Pulse Ox 04/09/18 09:45 97 04/09/18 08:19 98.1 F 77 19 154/85 97 04/09/18 04:22 98 F 77 15 146/85 100 04/08/18 23:36 98 F 86 15 142/89 97 04/08/18 20:35 97.9 F 84 15 134/80 99 04/08/18 17:35 98.3 F 18 152/81 04/08/18 17:15 151/90 04/08/18 17:00 157/94 04/08/18 16:45 164/84 04/08/18 16:30 152/84 04/08/18 16:15 158/94 04/08/18 16:00 160/91 04/08/18 15:45 149/86 04/08/18 15:30 160/91 04/08/18 15:15 149/86 04/08/18 15:00 161/91 04/08/18 14:45 152/95 04/08/18 14:30 154/95 04/08/18 14:15 158/96 04/08/18 14:00 162/94 04/08/18 13:45 98.1 F 18 157/96 04/08/18 11:22 98.4 F 76 18 155/85 100 Intake and Output 04/08/18 04/09/18 04/09/18 23:59 07:59 15:59 Intake Total 480 / 480 0 / 0 120 / 120 Output Total 3600 / 3600 0 / 0 Balance -3120 / -3120 0 / 0 120 / 120 Intake: Oral 480 / 480 0 / 0 120 / 120 Output: Urine 0 / 0 Total Dialysis (HD) Output 3600 / 3600 Other: Meal Breakfast Percent of Meal Consumed 100% Weight 74.2 kg Hemodialysis Net Fluid Removed 3000 (mL) - General Appearance General appearance: Present: well-developed, well-nourished EENT: Present: ATNC, hearing intact, vision intact Neck: Present: supple Respiratory: Present: clear Cardiology: Present: no edema, normal S1, normal S2 Dialysis Vascular Access: Arteriovenous Fistula thrill: Yes bruit: Yes Gastrointestinal: Present: normoactive bowel sounds, no tenderness, no guarding Integumentary: Present: no rash, warm and dry Neurologic: Present: alert and oriented x3 Psychiatric: Present: mood/affect appropriate, cooperative - Lab 04/09/18 04:43 04/09/18 04:43 Most recent lab results Calcium 8.4 mg/dL (8.6-10.3) L 04/09/18 04:43 Phosphorus 6.0 mg/dL (2.7-4.5) H 04/08/18 09:54 Magnesium 2.2 mg/dL (1.6-2.6) 04/08/18 09:54 - VTE Deep Vein Thrombosis/Pulmonary Embolism Present on Admission: No Consult Discharge Plan - Plan Additional Instructions: HEMODIALYSIS -- ON //. F-UP WITH PCP -- IN 7-10 DAYS. [facility]errals: [facility] [Primary Care Provider] - 04/18/18 10:15 am (Please follow up as schedule...) Prescriptions: Ondansetron ODT [Zofran ODT] 4 mg SL Q4HR PRN #10 tab.rapdis PRN Reason: Nausea And Vomiting LORazepam [Ativan] 0.5 mg PO Q6HR PRN 30 Days #20 tablet PRN Reason: Anxiety
--- NOTE | 2018-04-11 15:29 | Electrocardiograph Report ---
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
--- NOTE | 2018-04-11 17:49 | Electrocardiograph Report ---
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
== END 2018-04-09 11:57 | disposition home or self-care (01) ==
LOC: 2ANU 01:24 → EMEROOARM 01:24 → SUATTDRO 04:07 → 2ANU 05:47
PROVIDERS: ADMIT Family Medicine; ATTEND Internal Medicine

== ENCOUNTER 2019-08-19 18:32 | Inpatient (IN) ==
[2019-08-19] MEDS ORDERED: Ipratropium/Albuterol Neb 3 ML IH ONE ×2 (18:40→18:48)
[2019-08-19] MEDS ORDERED: methylPREDNISolone 125 MG/2 ML VIAL IVP ONE (18:48)
[2019-08-19] MEDS ORDERED: Ondansetron 4 MG/2 ML VIAL IVP ONE (18:49)
[2019-08-19] MEDS ORDERED: Pantoprazole 40 MG VIAL IVP ONE (19:16)
[2019-08-19] MEDS ORDERED: Promethazine 12.5 MG in 0.9 % Sodium Chloride 50 ML IVPB STA (19:34)
[2019-08-19 19:44] LABS: Basophils # 0.1 K/mcL (0.0-0.2); Basophils % 0.6 %; Eosinophils # 0.2 K/mcL (0.0-0.6); Eosinophils % 1.9 %; Hematocrit 36.7 % (37.5-50.1); Hemoglobin 11.9 g/dL (12.9-16.9); Immature Granulocytes % 0.7 % (0-4); Lymphocytes % 9.4 %; Mean Corpuscular HGB Conc 32.4 g/dL (31.6-35.5); Mean Corpuscular Hemoglobin 28.6 pg (28.0-33.3); Mean Corpuscular Volume 88.2 fL (83.0-100.0); Mean Platelet Volume 10.1 fL (9.4-12.4); Monocytes # 0.5 K/mcL (0.0-1.3); Monocytes % 4.9 %; Neutrophils # 8.5 K/mcL (1.6-8.9); Platelet Count 217 K/mcL (140-400); Red Blood Count 4.16 M/mcL (4.19-5.50); Red Cell Distribution Width 14.6 % (11.5-14.5); Segmented Neutrophils % 82.5 %; White Blood Count 10.3 K/mcL (4.3-11.1)
[2019-08-19] MEDS ORDERED: Furosemide 40 MG/4 ML VIAL IVP ONE (19:57)
[2019-08-19] MEDS ORDERED: *HR* FentaNYL (PF) 100 MCG/2 ML VIAL IVP ONE (20:01)
[2019-08-19 20:11] LABS: Calcium 8.6 mg/dL (8.6-10.3); Potassium 4.2 mEq/L (3.5-5.1); Troponin I 0.03 ng/mL (< 0.04)
[2019-08-19] MEDS ORDERED: Naloxone 0.4 MG/ML INJ IVP PRN (21:16)
[2019-08-19] MEDS ORDERED: Azithromycin 500 MG in 0.9 % Sodium Chloride 250 ML IVPB SCH (23:00)
[2019-08-19] MEDS: MethylPREDNISolone 40 MG/ML VIAL IVP SCH (23:31)
[2019-08-19] MEDS: Ipratropium/Albuterol Neb 3 ML IH SCH (23:59)
[2019-08-20] MEDS: Ipratropium/Albuterol Neb 3 ML IH SCH ×7 (00:06→23:31)
[2019-08-20 01:25] LABS: Albumin 4.1 g/dL (3.5-5.7); Albumin/Globulin Ratio 1.3 (1.1-2.2); Bilirubin,Total 0.6 mg/dL (0.3-1.0); Calcium 8.3 mg/dL (8.6-10.3); Globulin 3.2 g/dL (2.4-3.5); INR 1.1; Total Protein 7.3 g/dL (6.4-8.9)
[2019-08-20 01:28] LABS: Activated Partial Thrombo Time 40.3 Seconds (26.0-36.0)
[2019-08-20 01:31] LABS: Basophils % 0.2 %; Immature Granulocytes % 0.3 % (0-4); Lymphocytes # 0.2 K/mcL (0.6-4.6); Lymphocytes % 2.4 %; Mean Corpuscular HGB Conc 31.9 g/dL (31.6-35.5); Mean Corpuscular Hemoglobin 28.6 pg (28.0-33.3); Mean Corpuscular Volume 89.6 fL (83.0-100.0); Mean Platelet Volume 10.1 fL (9.4-12.4); Monocytes # 0.1 K/mcL (0.0-1.3); Monocytes % 1.5 %; Platelet Count 151 K/mcL (140-400); Red Blood Count 3.57 M/mcL (4.19-5.50); Red Cell Distribution Width 14.4 % (11.5-14.5); Segmented Neutrophils % 95.6 %; White Blood Count 6.5 K/mcL (4.3-11.1)
[2019-08-20 01:47] LABS: Hemoglobin 10.2 g/dL (12.9-16.9); Neutrophils # 6.2 K/mcL (1.6-8.9)
[2019-08-20 02:20] LABS: Platelet Estimate Normal (Normal)
[2019-08-20] MEDS ORDERED: 0.9 % Sodium Chloride 1,000 ML IVC SCH (03:30)
[2019-08-20] MEDS: Pantoprazole 40 MG VIAL IVP SCH ×2 (04:23→20:54)
[2019-08-20] MEDS: MethylPREDNISolone 40 MG/ML VIAL IVP SCH ×4 (04:23→20:54)
[2019-08-20] MEDS: Ondansetron 4 MG/2 ML VIAL IVP PRN (04:23)
[2019-08-20] MEDS ORDERED: *HR* Heparin 5,000 UNIT/ML VIAL SQ SCH (06:00)
[2019-08-20] MEDS ORDERED: *HR* Rocuronium Bromide 100 MG/10 ML VIAL IVC ONE (07:31)
[2019-08-20] MEDS ORDERED: *HR* Etomidate 20 MG/10 ML AMPUL IVP ONE (07:31)
[2019-08-20] MEDS ORDERED: *HR* Midazolam HCl 5 MG/5 ML VIAL IVP ONE (07:31)
[2019-08-20] MEDS ORDERED: 0.9 % Sodium Chloride 250 ML IVC PRN (08:04)
[2019-08-20] MEDS ORDERED: 0.9 % Sodium Chloride 1,000 ML PRIME SCH (08:15)
[2019-08-20] MEDS ORDERED: Azithromycin 500 MG in 0.9 % Sodium Chloride 250 ML IVPB SCH (09:00)
[2019-08-20 09:36] LABS: Hepatitis B Surface Antibody < 3.10 mIU/mL
[2019-08-20 09:47] LABS: Hepatitis B Surface Antigen Nonreactive (Nonreactive)
[2019-08-20] MEDS ORDERED: *HR* Promethazine 25 MG/ML VIAL IVP ONE (10:20)
[2019-08-20] MEDS ORDERED: Albumin 25% 25gram/100mL 25 GM/100 ML IV.SOLN ONE (10:49)
[2019-08-20] MEDS: Albumin 25% 25gram/100mL 25 GM/100 ML IV.SOLN IVPB SCH ×2 (11:49→20:54)
[2019-08-20] MEDS ORDERED: *HR* Propofol 200 MG/20 ML VIAL IVP ONE (12:53)
[2019-08-20] MEDS ORDERED: Lidocaine -MPF 2% 2 ML VIAL ONE ×2 (12:55→13:00)
[2019-08-20] MEDS ORDERED: *HR* PHENYLEPHRINE 1,000 MCG/10 ML SYRINGE IVP ONE (13:00)
[2019-08-20] MEDS ORDERED: *HR* Metoprolol 5 MG/5 ML VIAL IVP ONE (15:42)
[2019-08-20 16:49] LABS: ABG Base Excess -18 mEq/L (-2 to 3); ABG HCO3 12 mEq/L (21-27); ABG Oxygen Saturation 100 % (95-98); ABG PCO2 44 mmHg (35-45); ABG PH 7.04 pH Units (7.32-7.45); ABG PO2 309 mmHg (85-104); ABG TCO2 13 mEq/L (20-26); Blood Gas Modality ASSIST CONTROL; Blood Gas VT 500 cc
[2019-08-20] MEDS ORDERED: Sodium Bicarbonate 50 MEQ/50 ML VIAL IVP ONE ×2 (16:50→20:11)
[2019-08-20] MEDS ORDERED: *HR* Heparin 5,000 UNIT/ML VIAL IVP PRN ×2 (16:51)
[2019-08-20] MEDS ORDERED: Isovue-370 500 ML BOTTLE IVP ONE (17:07)
[2019-08-20] MEDS: Sodium Bicarbonate 150 MEQ in D5% in Water 1,000 ML IVC SCH (18:55)
[2019-08-20 19:03] LABS: Basophils % 0.2 %; Eosinophils % 0.1 %; Hematocrit 34.9 % (37.5-50.1); Hemoglobin 11.2 g/dL (12.9-16.9); Immature Granulocytes % 2.1 % (0-4); Lymphocytes # 0.5 K/mcL (0.6-4.6); Lymphocytes % 2.8 %; Mean Corpuscular HGB Conc 32.1 g/dL (31.6-35.5); Mean Corpuscular Hemoglobin 28.7 pg (28.0-33.3); Mean Corpuscular Volume 89.5 fL (83.0-100.0); Mean Platelet Volume 10.2 fL (9.4-12.4); Monocytes # 0.8 K/mcL (0.0-1.3); Monocytes % 4.8 %; Platelet Count 114 K/mcL (140-400); Red Cell Distribution Width 14.9 % (11.5-14.5)
[2019-08-20 19:07] LABS: Neutrophils # 15.7 K/mcL (1.6-8.9); White Blood Count 17.4 K/mcL (4.3-11.1)
[2019-08-20 19:21] LABS: Magnesium 2.9 mg/dL (1.6-2.6)
[2019-08-20 19:25] LABS: INR 1.6; Prothrombin Time 18.2 Seconds (9.4-12.1)
[2019-08-20 19:28] LABS: Troponin I 0.16 ng/mL (< 0.04)
[2019-08-20 19:29] LABS: Albumin 3.8 g/dL (3.5-5.7); Albumin/Globulin Ratio 1.5 (1.1-2.2); Bilirubin,Total 1.9 mg/dL (0.3-1.0); Calcium 8.2 mg/dL (8.6-10.3); Globulin 2.5 g/dL (2.4-3.5); Potassium 7.7 mEq/L (3.5-5.1); Total Protein 6.3 g/dL (6.4-8.9)
[2019-08-20 19:40] LABS: ABG Base Excess -11 mEq/L (-2 to 3); ABG HCO3 17 mEq/L (21-27); ABG Oxygen Saturation 80 % (95-98); ABG PCO2 44 mmHg (35-45); ABG PH 7.19 pH Units (7.32-7.45); ABG PO2 55 mmHg (85-104); ABG TCO2 18 mEq/L (20-26); Blood Gas Modality ASSIST CONTROL; Blood Gas VT 500 cc
[2019-08-20] MEDS ORDERED: Calcium Gluconate 1gm/50mL 1 GM/50 ML BAG IVPB ONE (19:43)
[2019-08-20] MEDS ORDERED: *HR* Dextrose 50 % in Water (Syg) 50 ML SYRINGE IVP ONE (19:43)
[2019-08-20] MEDS ORDERED: Insulin Human Regular 10 UNIT in 0.9 % Sodium Chloride 10 ML IV ONE (19:43)
[2019-08-20] MEDS ORDERED: Albuterol 2.5 MG/3 ML NEBULIZER IH ONE (20:51)
[2019-08-20] MEDS: Chlorhexidine Rinse 15 ML MOUTHWASH MM SCH (20:54)
[2019-08-20] MEDS: Norepinephrine 4 MG in 0.9 % Sodium Chloride 250 ML IVC SCH (20:55)
[2019-08-20] MEDS: FentaNYL (PF) 1,000 MCG in 0.9 % Sodium Chloride 80 ML IVC SCH (20:55)
[2019-08-20] MEDS ORDERED: Albuterol 2.5 MG/3 ML NEBULIZER ONE (20:57)
[2019-08-20] MEDS: Artificial Tears SOLN 15 ML BOTTLE BOTH EYES SCH (21:01)
[2019-08-20] MEDS: Heparin 25,000 UNIT/250 ML D5W 25,000 UNIT/250 ML IV.SOLN IVC SCH (21:52)
[2019-08-20 21:59] LABS: ABG Base Excess -6 mEq/L (-2 to 3); ABG HCO3 20 mEq/L (21-27); ABG Oxygen Saturation 100 % (95-98); ABG PCO2 40 mmHg (35-45); ABG PH 7.31 pH Units (7.32-7.45); ABG PO2 223 mmHg (85-104); ABG TCO2 21 mEq/L (20-26); Blood Gas Modality ASSIST CONTROL; Blood Gas VT 500 cc
[2019-08-20] MEDS ORDERED: *HR* Meperidine 25 MG/ML SYRINGE IVP PRN (21:59)
[2019-08-20 22:15] LABS: Calcium 8.2 mg/dL (8.6-10.3); Potassium 6.1 mEq/L (3.5-5.1)
[2019-08-21] MEDS: Artificial Tears SOLN 15 ML BOTTLE BOTH EYES PRN ×3 (00:31→08:51)
[2019-08-21] MEDS: Albumin 25% 25gram/100mL 25 GM/100 ML IV.SOLN IVPB SCH ×2 (00:33→08:11)
[2019-08-21] MEDS: FentaNYL (PF) 1,000 MCG in 0.9 % Sodium Chloride 80 ML IVC SCH ×3 (02:00→13:34)
[2019-08-21] MEDS: Dexmedetomidine HCl 400 MCG/100 ML MLS IVC SCH ×2 (02:20→08:50)
[2019-08-21] MEDS: Ipratropium/Albuterol Neb 3 ML IH SCH ×5 (03:06→19:42)
[2019-08-21] MEDS: Artificial Tears SOLN 15 ML BOTTLE BOTH EYES SCH ×6 (04:16→20:21)
[2019-08-21] MEDS: Sodium Bicarbonate 150 MEQ in D5% in Water 1,000 ML IVC SCH ×3 (04:17→08:54)
[2019-08-21 04:27] LABS: Basophils % 0.1 %; Hematocrit 30.7 % (37.5-50.1); Lymphocytes # 0.4 K/mcL (0.6-4.6); Mean Corpuscular HGB Conc 32.6 g/dL (31.6-35.5); Mean Corpuscular Hemoglobin 28.2 pg (28.0-33.3); Mean Corpuscular Volume 86.5 fL (83.0-100.0); Mean Platelet Volume 9.7 fL (9.4-12.4); Monocytes # 0.6 K/mcL (0.0-1.3); Monocytes % 5.3 %; Platelet Count 108 K/mcL (140-400); Red Blood Count 3.55 M/mcL (4.19-5.50); Red Cell Distribution Width 14.7 % (11.5-14.5); Segmented Neutrophils % 90.6 %; White Blood Count 12.1 K/mcL (4.3-11.1)
[2019-08-21 04:27] LABS: ABG Base Excess -5 mEq/L (-2 to 3); ABG HCO3 21 mEq/L (21-27); ABG Oxygen Saturation 89 % (95-98); ABG PCO2 43 mmHg (35-45); ABG PH 7.29 pH Units (7.32-7.45); ABG PO2 63 mmHg (85-104); ABG TCO2 22 mEq/L (20-26); Blood Gas Modality ASSIST CONTROL; Blood Gas VT 500 cc
[2019-08-21 04:38] LABS: Calcium 8.3 mg/dL (8.6-10.3); Magnesium 3.1 mg/dL (1.6-2.6); Phosphorous 6.7 mg/dL (2.7-4.5); Potassium 5.4 mEq/L (3.5-5.1)
[2019-08-21] MEDS: FLUoxetine 20 MG CAPSULE PO SCH (05:38)
[2019-08-21] MEDS: MethylPREDNISolone 40 MG/ML VIAL IVP SCH (06:07)
[2019-08-21] MEDS: Pantoprazole 40 MG VIAL IVP SCH ×2 (06:08→17:19)
[2019-08-21] MEDS ORDERED: 0.9 % Sodium Chloride 250 ML IVC PRN (08:05)
[2019-08-21] MEDS: Chlorhexidine Rinse 15 ML MOUTHWASH MM SCH ×2 (08:16→20:21)
[2019-08-21] MEDS: Aspirin 81 MG TAB.CHEW PO SCH (08:16)
[2019-08-21] MEDS ORDERED: *HR* Amiodarone 150 MG/3 ML VIAL IVPB ONE (08:48)
[2019-08-21] MEDS ORDERED: *HR* Norepinephrine 4 MG/4 ML VIAL IVC ONE (08:48)
[2019-08-21] MEDS ORDERED: *HR* Magnesium Sulfate 2 GM/50 ML PIGGYBACK IVPB ONE (08:48)
[2019-08-21] MEDS ORDERED: D5% in Water 250 ML IV BAG IV ONE (08:48)
[2019-08-21] MEDS ORDERED: *HR* EPINEPHrine 1 MG/10 ML SYRINGE IVP ONE (08:48)
[2019-08-21] MEDS ORDERED: Azithromycin 250 MG TABLET PO SCH (09:00)
[2019-08-21 09:03] LABS: Albumin/Globulin Ratio 1.8 (1.1-2.2); Bilirubin,Direct 0.6 mg/dL (0.0-0.2); Bilirubin,Indirect 0.5 mg/dL (0.0-1.0); Bilirubin,Total 1.1 mg/dL (0.3-1.0); Globulin 2.2 g/dL (2.4-3.5); Total Protein 6.2 g/dL (6.4-8.9)
[2019-08-21] MEDS: Norepinephrine 4 MG in 0.9 % Sodium Chloride 250 ML IVC SCH (13:07)
[2019-08-21] MEDS ORDERED: *HR* HYDROmorphone 2 MG TABLET PO PRN (19:41)
[2019-08-21] MEDS: MetroNIDAZOLE 500 MG/100 ML 500 MG/100 ML BAG IVPB SCH ×2 (20:20→23:33)
[2019-08-21] MEDS: Cefepime HCl 1,000 MG in 0.9 % Sodium Chloride Mini Bag 100 ML IVPB SCH (20:20)
[2019-08-21] MEDS: Heparin 25,000 UNIT/250 ML D5W 25,000 UNIT/250 ML IV.SOLN IVC SCH (20:22)
[2019-08-22] MEDS: Ipratropium/Albuterol Neb 3 ML IH SCH ×7 (00:09→23:49)
[2019-08-22] MEDS: Pantoprazole 40 MG VIAL IVP SCH (06:10)
[2019-08-22] MEDS: Ondansetron 4 MG/2 ML VIAL IVP PRN (07:00)
[2019-08-22] MEDS ORDERED: 0.9 % Sodium Chloride 250 ML IVC PRN (08:17)
[2019-08-22] MEDS: MetroNIDAZOLE 500 MG/100 ML 500 MG/100 ML BAG IVPB SCH (08:20)
[2019-08-22] MEDS: Aspirin 81 MG TAB.CHEW PO SCH (08:21)
[2019-08-22] MEDS: Cefepime HCl 1,000 MG in 0.9 % Sodium Chloride Mini Bag 100 ML IVPB SCH (08:21)
[2019-08-22] MEDS: FLUoxetine 20 MG CAPSULE PO SCH ×2 (08:21→09:03)
[2019-08-22 08:53] LABS: Hematocrit 27.4 % (37.5-50.1); Hemoglobin 8.9 g/dL (12.9-16.9); Mean Corpuscular HGB Conc 32.5 g/dL (31.6-35.5); Mean Corpuscular Volume 89.3 fL (83.0-100.0); Mean Platelet Volume 9.9 fL (9.4-12.4); Red Blood Count 3.07 M/mcL (4.19-5.50); Red Cell Distribution Width 14.9 % (11.5-14.5); White Blood Count 10.2 K/mcL (4.3-11.1)
[2019-08-22 08:54] LABS: Platelet Count 98 K/mcL (140-400)
[2019-08-22 09:07] LABS: Calcium 7.5 mg/dL (8.6-10.3); Potassium 4.2 mEq/L (3.5-5.1)
[2019-08-22] MEDS ORDERED: Heparin 25,000 UNIT/250 ML D5W 25,000 UNIT/250 ML IV.SOLN IVC SCH (11:34)
[2019-08-22] MEDS ORDERED: Naloxone 0.4 MG/ML INJ IVP PRN (11:34)
[2019-08-22] MEDS ORDERED: Ondansetron 4 MG/2 ML VIAL IVP PRN (11:34)
[2019-08-22] MEDS ORDERED: *HR* Heparin 5,000 UNIT/ML VIAL IVP PRN ×2 (11:34)
[2019-08-22] MEDS ORDERED: Ergocalciferol (VIT D2) 50,000 UNIT (1.25MG) CAP PO SCH (11:34)
[2019-08-22 12:42] LABS: % Iron Saturation 120 % (20-55); Iron 227 mcg/dL (65-175); Transferrin 135 mg/dL (203-362)
[2019-08-22] MEDS: Apixaban 5 MG TABLET PO SCH ×2 (13:14→20:06)
[2019-08-22] MEDS ORDERED: 0.9 % Sodium Chloride 1,000 ML ONE (13:46)
[2019-08-22] MEDS ORDERED: Amoxicillin/Clavulanate 500 MG TABLET PO SCH (17:00)
[2019-08-23] MEDS: Ipratropium/Albuterol Neb 3 ML IH SCH ×6 (03:45→23:55)
[2019-08-23] MEDS ORDERED: Regadenoson 0.4 MG/5 ML SYRINGE IVP ONE (08:44)
[2019-08-23] MEDS: FLUoxetine 20 MG CAPSULE PO SCH (12:23)
[2019-08-23] MEDS: Aspirin 81 MG TAB.CHEW PO SCH (12:23)
[2019-08-23] MEDS: Apixaban 5 MG TABLET PO SCH ×2 (12:23→20:39)
[2019-08-24] MEDS: Ipratropium/Albuterol Neb 3 ML IH SCH ×4 (03:31→15:36)
[2019-08-24 07:53] LABS: Basophils % 0.3 %; Eosinophils # 0.1 K/mcL (0.0-0.6); Eosinophils % 1.7 %; Hemoglobin 8.6 g/dL (12.9-16.9); Immature Granulocytes % 1.3 % (0-4); Lymphocytes # 0.3 K/mcL (0.6-4.6); Lymphocytes % 3.9 %; Mean Corpuscular HGB Conc 33.1 g/dL (31.6-35.5); Mean Corpuscular Hemoglobin 28.5 pg (28.0-33.3); Mean Corpuscular Volume 86.1 fL (83.0-100.0); Mean Platelet Volume 10.6 fL (9.4-12.4); Monocytes # 0.5 K/mcL (0.0-1.3); Monocytes % 6.4 %; Neutrophils # 6.7 K/mcL (1.6-8.9); Platelet Count 122 K/mcL (140-400); Red Blood Count 3.02 M/mcL (4.19-5.50); Red Cell Distribution Width 14.8 % (11.5-14.5); Segmented Neutrophils % 86.4 %; White Blood Count 7.8 K/mcL (4.3-11.1)
[2019-08-24 08:05] LABS: Calcium 8.1 mg/dL (8.6-10.3); Potassium 3.9 mEq/L (3.5-5.1)
[2019-08-24] MEDS: FLUoxetine 20 MG CAPSULE PO SCH (09:28)
[2019-08-24] MEDS: Aspirin 81 MG TAB.CHEW PO SCH (09:28)
[2019-08-24] MEDS: Apixaban 5 MG TABLET PO SCH (09:29)
[2019-08-24 11:58] VITALS: BP 167/84
== END 2019-08-24 16:50 | disposition home or self-care (01) | DRG 208 ==
LOC: EMEROOARM 18:32 → 2ANU 18:32 → SUATTDRO 21:33 → 2ANU 22:12 → ICNU 08-20 17:24 → 2ANU 08-23 11:39
PROVIDERS: ADMIT Family Medicine; ATTEND Internal Medicine
PROC: ENDOEBX (2019-08-20 14:45)